=== PATIENT | female | born 1995 | race Caucasian/White ===

== ENCOUNTER 2021-12-16 05:54 | Inpatient (IN) | payer BC, SELFPAY ==
[2021-12-16] VITALS (72 sets, daily range): BP systolic 83–142; BP diastolic 45–90; PULSE 63–109; RESP 16; TEMP 36.6–36.9; O2SAT 97–100; BMI 27.8
--- OUTSIDE RECORDS SUMMARY | 2021-12-16 05:58 | XMS_ITS | Encounter Summary ---
:1995 Author Organization [facility] Address [address] [place] [address] Care Team Providers Name Role Phone Unavailable Primary Care Provider Unavailable Reason for Visit Reason Comments CONTROL, MEDICATION needs refills Encounter Details Date Type Department Care Team Description 03/27/2017 Office Visit [place] [facility] Hugo Dang for Family Practice MD Zak contraceptive [address] [address] [facility], unspecified [place], [place] type (Primary Dx) [place] [address] [place], [place] [phone] Social History Tobacco Use Types Packs/Day Years Used Date Smoking Tobacco: Never Smokeless Tobacco: Never Sex Assigned at Date Recorded Not on file documented as of this encounter Last Filed Vital Signs Vital Sign Reading Time Taken Comments Blood Pressure 127/78 03/27/2017 10:52 AM ETHICAL HACKER Pulse 76 03/27/2017 10:52 AM ETHICAL HACKER Temperature - - Respiratory Rate - - Oxygen Saturation - - Inhaled Oxygen Concentration - - Weight 60.8 kg (134 lb) 03/27/2017 10:52 AM ETHICAL HACKER Height 162.1 cm (5' 3.8) 03/27/2017 10:52 AM ETHICAL HACKER Body Mass Index 23.15 03/27/2017 10:52 AM ETHICAL HACKER documented in this encounter Patient Instructions Patient InstructionsZak Dang MD - 03/27/2017 10:50 AM CST Images from the original note were not included. 2nd form of control if on antibiotic It's been a pleasure seeing you today. Zak Dang MD 03/27/2017, 11:11 AM Combination Control Pills: Care Instructions Your Care Instructions Combination control pills are used to prevent . They give you a regular dose of the hormones estrogen and progestin. You take a hormone pill every day to prevent . control pills come in packs. The most common type has 3 weeks of hormone pills. Some packs have sugar pills (they do not contain any hormones) for the fourth week. During that fourth no-hormone week, you have your period. After the fourth week (28 days), you start a new pack. Some control pills are packaged in different ways. For example, some have hormone pills for the fourth week instead of sugar pills. Taking hormones for the entire month causes you to not have periods or to have fewer periods. Others are packaged so that you have a period every 3 months. Your doctor will tell you what type of pills you have. Follow-up care is a mejia part of your treatment and safety. Be sure to make and go to all appointments, and call your doctor if you are having problems. It's also a good idea to know your test results and keep a list of the medicines you take. How can you care for yourself at home? How do you take the pill? ?? Follow your doctor's instructions about when to start taking your pills. Use backup control, such as a condom, or don't have intercourse for 7 days after you start your pills. ?? Take your pills every day, at about the same time of day. To help yourself do this, try to take them when you do something else every day, such as brushing your teeth. What if you forget to take a pill? Always read the label for specific instructions, or call your doctor. Here are some basic guidelines: ?? If you miss 1 hormone pill, take it as soon as you remember. Ask your doctor if you may need to use a backup control method, such as a condom, or not have intercourse. ?? If you miss 2 or more hormone pills, take one as soon as you remember you forgot them. Then read the pill label or call your doctor about instructions on how to take your missed pills. Use a backup method of control or don't have intercourse for 7 days. is more likely if you miss more than 1 pill. ?? If you had intercourse, you can use emergency contraception, such as the morning-after pill (PlanB). You can use emergency contraception for up to 5 days after having had intercourse, but it works best if you take it right away. What else do you need to know? ?? The pill has side effects. ?? You may have very light or skipped periods. ?? You may have bleeding between periods (spotting). This usually decreases after 3 to 4 months. ?? You may have mood changes, less interest in sex, or weight gain. ?? The pill may reduce acne, heavy bleeding and cramping, and symptoms of premenstrual syndrome. ?? Check with your doctor before you use any other medicines, including tyzt-fre-zryalcq medicines, vitamins, herbal products, and supplements. control hormones may not work as well to prevent when combined with other medicines. ?? The pill doesn't protect against sexually transmitted infection (STIs), such as herpes or HIV/AIDS. If you're not sure whether your sex partner might have an STI, use a condom to protect against disease. When should you call for help? Call your doctor now or seek immediate medical care if: ?? You have severe belly pain. ?? You have signs of a blood clot, such as: ?? Pain in your calf, back of the knee, thigh, or groin. ?? Redness and swelling in your leg or groin. ?? You have blurred vision or other problems seeing. ?? You have a severe headache. ?? You have severe trouble breathing. Watch closely for changes in your health, and be sure to contact your doctor if: ?? You think you might be . ?? You think you may be depressed. ?? You think you may have been exposed to or have a sexually transmitted infection. Where can you learn more? 1. Go to [employer] or [employer]. 2. Enter Z218 in the search box. Current as of: June 01, 2016 Content Version: 11.3 ?? [id number] [email or web address], [employer]. CAL HACKER documented in this encounter Progress Notes Zak Dang MD - 03/27/2017 10:50 AM CST SUBJECTIVE: This is a 21-year-old female patient new patient to the clinic. She presents today for controlprescription. She says that she was previously going to the [facility] but [facility]. She says that she was on a control which was causing irregular bleeding so her previous primary care doctor switched her to Seasonale where she uses the sugar pills every 3 months. She has not had any problems with the Seasonale and would like to continue it. Requesting for refill. She already has received the flu vaccine at [facility] and did HIV testing. She is up-to-date on immunizations and she believes records from [facility] for us. No other concerns. Allergies: Penicillin bees honey Past medical history: Sinus infections strep when she was younger Past surgical history: She had her tonsils removed and adenoids shaved but she says that the adenoids are growing back Social history: Never smoker no alcohol or drug use. 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 Going to school part-time. Got recently to a [place] and planning to move in a few months but she is not sure where. Living at home with her mom and sister. Occasional coffee consumption. Occasional soda consumption. Family history: Mother's side of family is quite healthy. She does not know much about her father's side of the family OBJECTIVE: BP 127/78 Pulse 76 Ht 5' 3.8 (1.621 m) Wt 134 lb (60.8 kg) BMI 23.15 kg/m2 General: appears well, no acute distress, alert and oriented x3 LUNGS: Clear to auscultation bilaterally, no wheezes or rhonchi appreciated HEART: RRR, S1 S2 normal, no murmurs appreciated ASSESSMENT: Encounter for contraceptive management PLAN: ICD-10-CM 1. Encounter for contraceptive management, unspecified type Z30.9 levonorgest- eth estrad 91-Day (SEASONALE) 0.15-0.03 MG tablet Counseled patient about using second form of control if she is going to be on antibiotics. Seasonale prescription sent. Patient voiced understanding. This note created using speech-recognition software and may contain unintended word substitutions. Zak Dang MD 03/27/2017, 11:13 AM CAL HACKER documented in this encounter Plan of Treatment Not on filedocumented as of this encounter Visit Diagnoses Diagnosis Encounter for contraceptive management, unspecified type - Primary documented in this encounter
--- OUTSIDE RECORDS SUMMARY | 2021-12-16 05:58 | XMS_ITS | Clinical Summary ---
:1995 Author Organization [facility] [place] [address] Care Team Providers Name Role Phone Eri Johnson MD Primary Care Provider [phone] Allergies Active Allergy Reactions Severity Noted Date Comments Honey Anaphylaxis High 09/29/2013 Penicillins Rash 12/21/2009 PCN injection. Sweating Venom-Honey Bee Anaphylaxis High 11/13/2010 Medications Medication Sig Dispensed Refills Start Date End Date Status vit 28/iron Take 1 Tablet by 0 04/25/2021 Active fum/folic mouth once daily. (multivitamin folic acid 1 mg) Breast Pump Electric breast pump 1 Each 0 09/21/2021 Active PurchaseIndications: for home use. Care and examination Gestational age at of lactating mother delivery: 39 weeks. Reason for need: return to work. Length of need: 99 months (lifetime use) Active Problems Problem Noted Date COVID-19 affecting in second trimester 07/25 Overview: Diagnosed 16 weeks. Encounter for supervision of other normal , f irst trimester 05/30/2021 04/28/2021 Overview: Formatting of this note is dif ferent from the original. Component Latest Ref Rng & Units 11/24/2021 Vaginal/Rectal OB Strep B PCR Negative Estimated Date of Delivery: 12/14/21 Patient's last menstrual period was 12/2 04/2020. Last Tdap- 09/21/2021 Last Flu vaccine- 01/23/2017 Glucose (GTT) result- Component Latest Ref Rng & Units 09/21/2021 HEMOGLOBIN 12.0 - 16.0 g/dL 12.8 MCV 80 - 100 fL 90 GLUCOSE,GESTATIONAL 65 - 140 mg/dL 85 TREPONEMA PALLIDUM Negative Negative 20 week US: FINDINGS: Sonographic imaging demonstrates a singl e living intrauterine gestation. Fetus demonstrates a regular cardiac rate of 147 beats per minute. Fetus has a breech position. The placenta lies anteriorly with out evidence of placenta previa. Amnioti c fluid volume appears normal. Single deepest vertical pocket: 3.6 cm. The cervix is closed and measures 3.5 cm in length. The composite ultrasound gestational ag e is calculated at 20 weeks 1 day with a n estimated sonographic due date of 12/26/2021. The estimated weight is 346 grams which lies at the 32nd %. The following biometric measurements wer e obtained: Biparietal diameter: 4.4 cm/19 weeks 3 d ays 9th% Head circumference: 17.3 cm/19 weeks 6 d ays 13th% Abdominal circumference: 15.5 cm/20 week s 5 days 47th% Femur length: 3.2 cm/20 weeks 1 day 26th % The HC/AC ratio measures: 1.11 range (1. 09-0.26) On anatomic survey, there is a normal ap pearance of the cerebral ventricles, cavum septi pellucidi, cisterna magna and cerebellum. The nose, lips, and facial profile appear normal. The cervical, t horacic and lumbar spine are well visual ized and appear normal. There is a normal four-chamber heart view and the left and right ventricular outflow tracts appear normal. The diaphragm and stomach appear normal. The kidneys and bladder also appear normal. There is a normal three-vessel cord and cord insertion site. The four extremities appear normal. IMPRESSION: Normal OB ultrasound exam with concordan ce of clinical and sonographic dating. No intrinsic abnormalities noted on anatomic survey. Allergies Allergen Reactions ? ? Honey Anaphylaxis ? ? Venom-Honey Bee Anaphylaxis ? ? Penicillins Rash PCN injection. Sweating OB History Para Term AB Living 2 1 1 0 0 1 SAB IAB Ectopic Multiple Live Births 0 0 0 0 1 # Outcome Date GA Lbr Silver/2nd Weight Sex Delivery Anes PTL Lv 2 Current 1 Term 04/30/18 39w5d 3.06 kg (6 lb 12 o z) F VAGINAL ERWIN EPIDURAL N PIYUSH Name: Minda Man lab flowsheet for OB labs- Component Latest Ref Rng & Units 05/02/2021 022 05/02/2021 2:45 PM 2:45 PM 2:45 PM RUBELLA IGG ANTIBODY Positive 8.48 ANTIBODY SCREEN Negative Negative SPECIMEN EXPIRATION DATE/TIME 05/05/21 23:59 CHLAMYDIA PROBE N GONORRHOEAE PROBE TREPONEMA PALLIDUM Negative Negative HBSAG Nonreactive Nonreactive ABORH O Rh Positive HIV-1/HIV-2 ANTIBODY Non-Reactive Non-Reactive Component Latest Ref Rng & Units 05/02/2021 2:48 PM RUBELLA IGG ANTIBODY ANTIBODY SCREEN Negative SPECIMEN EXPIRATION DATE/TIME CHLAMYDIA PROBE Negative N GONORRHOEAE PROBE Negative TREPONEMA PALLIDUM Negative HBSAG Nonreactive ABORH HIV-1/HIV-2 ANTIBODY Non-Reactive Past Medical History: . Date ? ? ASCUS of cervix with negative high risk HPV 01/2021 ASCUS/HPV negative. Plan:Pap du e 01/2024 No past surgical history on file. No data on file. Preganacy 2 Problems (from 04/22/21 to p resent) No problems associated with this episod e. Karina Godinez RN.....04/28/2021 1:38 PM ASCUS of cervix with negative high risk HPV 01/17/2021 Overview: 01/2021 ASCUS/HPV negative. Plan:Pap due 01/2024 BRONCHITIS - ACUTE 03/31/2005 CONJUNCTIVITIS 03/31/2005 Estimated Date of Delivery Comments Yes 12/23/2021 Based on Ultrasound Resolved Problems Problem Noted Date Resolved Date Supervision of normal first , antepartum 02/11/2018 04/28/2021 Overview: Formatting of this note is dif ferent from the original. Component Latest Ref Rng & Units 04/08/2018 Culture No Group B Streptococcus isolated. Initial OB labs: CG Chlam neg O+ Neg antibody Hep B non reactive Syphilis neg Rubella Immune VZV immune Quad screen neg Pap NIL 20 week ultrasound: Anterior placenta <25% growth Normal anatomy, unable to visualiz e spine due to position Estimated Date of Delivery: 05/02/18 Patient's last menstrual period was 07/17. Last Tdap- 02/11/2018 Last Flu vaccine- declined Glucose (GTT) result- not on file Allergies Allergen Reactions ? ? Honey Anaphylaxis ? ? Venom-Honey Bee Anaphylaxis ? ? Penicillins Rash PCN injection. Sweating Obstetric History T0 L0 SAB0 TAB0 Ectopic0 Multiple0 Live s0 # Outcome Date GA Lbr Silver/2nd Weight Sex Delivery Anes PTL Lv 1 Current Create lab flowsheet for OB labs- see ab ove No past medical history on file. No past surgical history on file. No data on file. 1st Pregnacy Problems (from 02/11/18 to present) Problem Noted Resolved Supervision of normal first , antepartum 02/11/2018 by Eri Johnson MD No Overview Signed 02/11/2018 1:08 PM by Eri Figueroa MD Initial OB labs: CG Chlam neg O+ Neg antibody Hep B non reactive Syphilis neg Rubella Immune VZV immune Quad screen neg Pap NIL 20 week ultrasound: Anterior placenta <25% growth Normal anatomy, unable to visualiz e spine due to position Karina Cline, RNC.....02/12/2018 7:37 A M Encounters Date Type Specialty Care Team Description 12/13/2021 Travel 12/09/2021 OB Encounter Eri Johnson Car e MD Margaret (38wk/Contracti ons, mainly at night . Nothing consistent, naga e can be enough to stop and breath through. Mainly in her back and they don't last too long.) 12/09/2021 Ancillary Procedure 12/08/2021 Travel 12/05/2021 Travel 12/02/2021 OB Encounter Eri Johnson Car e (37 MD Margaret wk/Really bad b ack pain. If she walks a lot will have pressure.) 12/02/2021 Ancillary Procedure 12/02/2021 Telephone Eri Johnson Questions (B PP NEEDED?) MD Margaret 12/02/2021 Travel 11/28/2021 Travel 11/24/2021 OB Encounter Eri Johnson Car e (35wk MD Margaret 6d/Started gett ing heartburn, ever y time she eats.) 11/24/2021 Travel 11/18/2021 OB Encounter Eri Johnson Car e (35 weeks MD Margaret 0 days); Concer ns (baby dropping, unsur e if jorge [place]) 11/18/2021 Travel 11/17/2021 Travel 11/13/2021 Travel 11/01/2021 Travel 10/20/2021 OB Encounter Eri Johnson Car e (30w MD Margaret 6d/Low back patrick n and leg cramping./Has a bump near/in the vag inal are Lizabeth stated pro vider she check.) 10/20/2021 Ancillary Procedure 10/20/2021 Travel 10/18/2021 Travel 10/04/2021 Orders Only Lizabeth Ochoa <No scans jennifer ched> YOGESH Earl 10/03/2021 Office Visit Lizabeth Ochoa Vaginal Proble m (Vaginal YOGESH Earl itching, swell ing since Sunday ) 10/03/2021 Travel 10/01/2021 Travel 10/01/2021 Nurse Triage Eri Johnson Questions MD Margaret 09/21/2021 OB Encounter Eri Johnson Immunization /Injection; MD Margaret Care ( 26w 5d/) 09/21/2021 Orders Only Lab, [facility] 09/20/2021 Travel from Last 3 Months Immunizations Name Administration Dates Next Due DTaP 08/21/2001, 03/08/1998, 02/18/1997, 1996, 1996 HIB PRP-OMP (PedvaxHIB) 03/08/1998, 02/18/1997, 1996, 1996 Hepatitis B (Peds) 02/18/1997, 1996, 1996 Inactivated Polio Vaccine 08/21/2001, 11/25/1997, 1996 , 1996 Influenza, IIV3 (Age >=3 years) 01/24/2006, 03/06/2005 Influenza, IIV4 01/23/2017, 12/08/2008 MMR 08/21/2001, 11/25/1997 Meningococcal Vaccine (Menactra) 10/02/2008 Tdap 09/21/2021, 02/11/2018, 10/02/2008 Tuberculin Skin Test, Unspecified 11/15/2016, 11/06/2016 Varicella Vaccine 10/02/2008, 03/08/1998 Family History Medical History Relation Name Comments Congenital heart disease Half-Brother Genetic Other Family history o f:cervucsl ca- mothetr~~Breast Cancer: No~~Ovarian Cancer: No~~Orogrande n CA: No~~Prostate/Teresa ticular CA: No~~Osteoporosis : No~~Early CAD: No~~DM: No~~Thyroid Dz: No Relation Name Status Comments Father Half-Brother Other Social History Tobacco Use Types Packs/Day Years Used Date Never Smoker Smokeless Tobacco: Never Used Tobacco Cessation: Counseling Given: Yes Alcohol Use Standard Drinks/Week Comments No 0 (1 standard drink = 0.6 oz pure alcoho l) Estimated Date of Delivery Comments Yes 12/23/2021 Based on Ultrasound Sex Assigned at Date Recorded Not on file COVID-19 Exposure Response Date Recorded In the last 10 days, have you been in contact with No / Unsu re 12/13/2021 9:01 AM CDT someone who was confirmed or suspected to have Coronavirus/COVID-19? Obstetrics History Para Term AB IAB SAB Ectopic Multiple Living Live Births 2 1 1 1 1 Date Outcome GA Total Labor/2nd/3rd Weight Sex Delivery Anes PTL Piyush A 1 A5 Name Clin Labor 04/30 Term 39w 10h 3.06 kg F VAGINAL Epidu N [facility] Tappe /2018 5d 00m (6 lb ERWIN ral ng ey r 12 oz) Complications: None Delivery Location: [facility] Current OB Episode Summary Episode Dates Estimated Date of Pregravid Weight TWG (As of ) Delivery 04/22/2021 - Present 12/23/2021 (12/16/2021) Progress Notes 12/09/2021 - 38w0d - Eri Johnson MD SUBJECTIVE: Arablela Reese is a 26 y.o. female at 38 weeks. Had itching earlier in the week on hands and feet, but now has resolved. She is having sporatic contractions, naga e siginficant enough to breathe through. Feels them in her back. No concerns. See visit comments. OBJECTIVE: see OB vitals flow sheet Cervix soft, 4 cm external os, but unabl e to reach internal os due to posterior position with low station. BPP 10/24 ASSESSMENT : 38 weeks gestation with no complications PLAN: Labor signs and symptoms reviewed with p atient including painful regular contractions or leaking fluid. Plan for induction in 1 week for history of COVID in and EFW 10%. Eri Johnson MD .............. ...... 12/09/2021 12:03 PM 12/02/2021 - 37w0d - Eri Johnson MD SUBJECTIVE: Arabella Reese is a 26 y.o. female at 37 weeks. She is getting contractions in the eveni ng, last night was feeling in the back. No concerns. See visit comments. OBJECTIVE: see OB vitals flow sheet NST category 1 baseline 140 bpm moderate variability with accelerations to 155 bpm. No decels. . ASSESSMENT : 37 weeks gestation with history of covid in . Growth US shows 10% PLAN: labor signs and symptoms reviewe d with patient including pain, cramping, bleeding or leaking fluid. RTC 1 weeks with BPP. Eri Johnson MD .............. ...... 12/02/2021 10:43 AM 11/24/2021 - 35w6d - Eri Johnson MD SUBJECTIVE: Arabella Reese is a 26 y.o. female at 35+6 weeks. Having heartburn, hasn't tried anything yet. No concerns. See visit comments. OBJECTIVE: see OB vitals flow sheet ASSESSMENT : 35+6 weeks gestation with hx covid in pr egnancy. PLAN: labor signs and symptoms reviewe d with patient including pain, cramping, bleeding or leaking fluid. Growth ultrasound next week, weekly NST and will plan for induction after 39 weeks. Recommend OTC tums or pepcid for heartbu rn. GBS done today RTC 1 weeks. Eri Johnson MD .............. ...... 11/24/2021 10:43 AM 11/18/2021 - 35w0d - Eri Johnson MD SUBJECTIVE: Arabella Reese is a 26 y.o. female at 35 weeks. Having some BH contractions. No concerns. See visit comments. OBJECTIVE: see OB vitals flow sheet ASSESSMENT : 35 weeks gestation with no complications Covid in prengnacy PLAN: labor signs and symptoms reviewe d with patient including pain, cramping, bleeding or leaking fluid. RTC 1 weeks, has growth ultrasound in 2 weeks. Eri Johnson MD .............. ...... 11/18/2021 3:15 PM 10/20/2021 - 30w6d - Eri Johnson MD SUBJECTIVE: Arabella Reese is a 26 y.o. female at 30+6 weeks. Yeast symptoms gone. Also a mucosal cyst found at that visit on 10/03, she has no symptoms and as far as she is aware, it has not changed. Is having low back pain, feels the spine locking. See visit comments. OBJECTIVE: see OB vitals flow sheet Vaginal lesion appears ot be scar tissue from prior perineal lac repair. ASSESSMENT : 30+6 weeks gestation with no complicatio ns other than covi in PLAN: labor signs and symptoms reviewe d with patient including pain, cramping, bleeding or leaking fluid. RTC 2 weeks. Growth ultrasound at 36 weeks. Eri Johnson MD .............. ...... 10/20/2021 10:42 AM 09/21/2021 - w5d - Eri Johnson MD SUBJECTIVE: Arabella Reese is a 26 y.o. female at 26+5 weeks. No concerns. See visit comments. OBJECTIVE: see OB vitals flow sheet ASSESSMENT : 26+5 weeks gestation with no complicatio ns Covid in PLAN: labor signs and symptoms reviewe d with patient including pain, cramping, bleeding or leaking fluid. RTC 4 weeks with growth ultrasound for h istory of covid in . Eri Johnson MD .............. ...... 09/21/2021 9:58 AM 08/22/2021 - w3d - Eri Johnson MD SUBJECTIVE: Arabella Reese is a 26 y.o. female at 22+3 weeks. Having swelling when she wakes in the AM in the feet and ankles. Gets better as she moves around. NO headache, vision changes, upper abdominal pain. No other concerns. See visit comments. OBJECTIVE: see OB vitals flow sheet ASSESSMENT : 22+3 weeks gestation with covid in 2nd t rimester PLAN: labor signs and symptoms reviewe d with patient including pain, cramping, bleeding or leaking fluid. RTC 4 weeks with diabetes, hemoglobin an d syphilis screening as well as TDaP. Eri Johnson MD .............. ...... 08/22/2021 9:59 AM 07/25/2021 - 18w3d - Eri Johnson MD SUBJECTIVE: Arabella Reese is a 25 y.o. female at 18+3 weeks. She had covid since our last visit. She is now completely recovered No concerns. See visit comments. OBJECTIVE: see OB vitals flow sheet ASSESSMENT : 18+3 weeks gestation with no complicatio ns PLAN: Warning signs and symptoms reviewed with patient including pain, cramping, bleeding or leaking fluid. ultrasound in 2 weeks, already scheduled . RTC 4 weeks. Eri Johnson MD .............. ...... 07/25/2021 10:21 AM 06/27/2021 - w3d - Eri Johnson MD SUBJECTIVE: Arabella Reese is a 25 y.o. female at 14+3 weeks. Was getting sick/faint with PNV, but fee ling better since stopping. Is eating well except has an aversion to meat. No concerns. See visit comments. OBJECTIVE: see OB vitals flow sheet ASSESSMENT : 14+3 weeks gestation with no complicatio ns PLAN: Warning signs and symptoms reviewed with patient including pain, cramping, bleeding or leaking fluid. Discussed dietary strategies to get adeq uate folic acid, calcium, iron. Will try pnv again once feeling better. RTC 4 weeks. ultrasound ordered for 20 w eeks. Eri Johnson MD .............. ...... 06/27/2021 12:21 PM 05/30/2021 - w3d - Eri Johnson MD FIRST OB VISIT HPI: Arabella Reese is a 25 y.o. fe male at 10w3d with srinivasan intrauterine here today for a initial OB exam. Estimated due date is Estimated Date of Delivery: 12/23/21 based on first trimester ultrasound dating. Nausea/Vomiting: yes, but vomiting impro sujata the last week. Feels very shaky Breast tenderness: yes Fatigue: yes Bleeding: yes, but resolved Taking vitamins: yes Options of sequential screen, cell-free DNA testing, amniocentesis were discussed. Patient is interested in pursuing testing. AMA: no Previous : no OB History Para Term AB Living 2 1 1 1 SAB IAB Ectopic Multiple Live Births 1 # Outcome Date GA Lbr Silver/2nd Weight Sex Delivery Anes PTL Lv 2 Current 1 Term 04/30/18 39w5d 3.06 kg (6 lb 12 o z) F VAGINAL ERWIN EPIDURAL N PIYUSH Past Medical History: . Date ? ? ASCUS of cervix with negative high risk HPV 01/2021 ASCUS/HPV negative. Plan:Pap du e 01/2024 No past surgical history on file. Family History Problem Relation Age of Onset ? ? Genetic Other Family history of:cervucsl ca- mothetr~ ~Breast Cancer: No~~Ovarian Cancer: No~~Colon CA: No~~Prostate/Testicular CA: No~~Osteoporosis: No~~Early CAD: No~~DM: No~~Thyroid Dz: No ? ? Congenital heart disease Half-Brother Social History Tobacco Use ? ? Smoking status: Never Smoker ? ? Smokeless tobacco: Never Used Substance Use Topics ? ? Alcohol use: No Current Outpatient Medications Medication Sig ? ? vit 28/iron fum/folic (multivitamin folic acid 1 mg) Take 1 Tablet by mouth once daily. No current facility-administered medicat ions for this visit. Medications have been reviewed by me and are current to the best of my knowledge and ability. ALLERGIES Honey, Venom-honey bee, and Penicillins MENTAL HEALTH HISTORY History of psychiatric diagnosis: None Current mental health provider: not appl icable Currently taking any psychiatric medicat ions? Not Applicable INFECTION HISTORY Current Drug Use: none Relevant infection history from [facility] ionnaire: none REVIEW OF SYSTEMS Comprehensive ROS complete and negative other than noted in HPI and on OB Questionnaire. PHYSICAL EXAM BP 131/83 (Cuff Site: Left Arm, Position : Sitting, Cuff Size: Child) Pulse 91 Ht 1.613 m (5' 3.5) Wt 63.5 kg (140 lb) LMP 03/09/2021 SpO2 99% BMI 24.41 kg/m?? General Appearance: Alert, appropriate a ppearance for age. No acute distress. HEENT Exam: Grossly normal. Neck/Thyroid Exam: Supple, no masses, no abbie or enlargement. Lungs: Clear to auscultation bilaterally . Breast Exam: Not indicated. Cardiovascular Exam: Regular rate and rh ythm. S1, S2, no murmur. Abd: Soft, non-tender, no masses or orga nomegaly. Skin: no rashes or lesions. Lymphatics: no nodes palpable. Psychiatric Exam: Alert and oriented x 3 , appropriate affect. Pelvic Exam: deferred/not indicated ASSESSMENT/PLAN 25 y.o. at 10w3d with srinivasan intrauterine . ICD-10-CM 1. Encounter for supervision of other no rmal , first trimester Z34.81 DNA SCREEN SEND OUT DNA SCREEN SEND OUT NV COLLECTION VENOUS BLOOD VENIPUNCTURE 2. Family history of Down syndrome Z82.7 9 Satisfactory exam. Demonstrates appropriate and health-seeking behaviors toward her . Verbalizes good understanding of care schedule and the importance of coming to each visit as scheduled. Start/continue v itamins. Reviewed labs. She was encouraged to call the office with any questions or concerns. Body mass index is 24.41 kg/m??. Diet and expected weight gain discussed with patient. DEPRESSION SCREEN PHQ Depression Screening 01/17/2021 Date of PHQ exam (doc flow) 01/17/2021 1. Lack of interest/pleasure 0 - Not at all 2. Feeling down/depressed 0 - Not at all PHQ-2 TOTAL SCORE 0 Some recent data might be hidden Intervention: Not Depressed Eri Johnson MD 05/02/2021 - 6w3d - Eri Johnson MD SUBJECTIVE: Arabella Reese is a 25 y.o. female here today for light brown spotting and 4/10 cramping starting today. She is really nauseated, not vomiting. H aving difficulty eating until 2 pm. Has sopped her prenatals because of fatigue and nausea. She has tried an OTC nausea medication with B6 and lavinia. Past Medical History: . Date ? ? ASCUS of cervix with negative high risk HPV 01/2021 ASCUS/HPV negative. Plan:Pap du e 01/2024 Current Medications: Current Outpatient Medications Medication Sig ? ? vit 28/iron fum/folic (multivitamin folic acid 1 mg) Take 1 Tablet by mouth once daily. No current facility-administered medicat ions for this visit. Medications have been reviewed by me and are current to the best of my knowledge and ability. Allergies Allergen Reactions ? ? Honey Anaphylaxis ? ? Venom-Honey Bee Anaphylaxis ? ? Penicillins Rash PCN injection. Sweating OBJECTIVE: BP 131/87 (Cuff Site: Left Arm, Position : Sitting, Cuff Size: Adult Regular) Pulse 83 Ht 1.619 m (5' 3.75) Wt 63.7 kg (140 lb 6.4 oz) LMP 03/09/2021 SpO2 100% BMI 24.29 kg/m?? EXAM: General Appearance: Pleasant, alert, leroy ropriate appearance for age. No acute distress ultrasound shows a 6w3d IUP with small s ubchorionic hemorrhage. ASSESSMENT/PLAN: ICD-10-CM 1. Spotting in early O26.859 2. care in first trimester Z34. 91 CBC AND DIFFERENTIAL URINE RUBELLA IMMUNE STATUS TREPONEMA PALLIDUM HBSAG (HBS) ANTIBODY SCREEN ABORH TYPE ANTI HIV 1/2 UA W/ SEDIMENT EXAM REFLEXED PER CRITER IA URINE CULTURE GC & CHLAMYDIA DNA PCR [[id number]] Reassurance given regarding spotting and cramping especially given normal ultrasound. Warning signs and symptoms reviewed, including bright red bleeding, heavy bleeding or severe abdominal pain which sh ould prompt reevaluation. Report non-res olution or worsening. The plan of care was agreed to. Discussed trying vitamins later in the evening to see if that helps with nausea and fatigue. If no improvement in nausea, patient can reach out to request prescription for zofran. Initial labs done today. Follow up in 4 weeks for initial oB visit. Eri Johnson MD .............. ...... 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 The patient and I mutually agree joss t this visit is appropriate for telephon e as well. Patient location (originating site city/ state): [address] [place] [id number] Provider location (distant site city/sta ): [facility] Video/Phone start time (include am/pm de signation): 7:35AM Video/Phone end time (include am/pm jorge gnation): 7:54 AM EXAM - OB Arabella Reese is a 25 y.o. female, G 2, P 1, here today for a exam. : 1995 Race/Ethnicity: /White Marital Status: Occupation: [employer] Hospital of Delivery: [place] Provider: provider Javed delacruz appjess /Father of baby: Jorge MENSTRUAL HISTORY LMP: Patient's last menstrual period was 03/09/2021. Cycle Regularity: regular, every 28-30 d ays Flow: normal SYLVIA by LMP Calculator: 12/14/2021 Date Reliability: definite On BCP's at conception: no, but had stop ped in mid-February MEDICAL HISTORY OB History Para Term AB Living 2 1 1 1 SAB IAB Ectopic Multiple Live Births 1 # Outcome Date GA Lbr Silver/2nd Weight Sex Delivery Anes PTL Lv 2 Current 1 Term 04/30/18 39w5d 3.06 kg (6 lb 12 o z) F VAGINAL ERWIN EPIDURAL N PIYUSH Past Medical History: . Date ? ? ASCUS of cervix with negative high risk HPV 01/2021 ASCUS/HPV negative. Plan:Pap du e 01/2024 No past surgical history on file. Family History: Family History Problem Relation Age of Onset ? ? Genetic Other Family history of:cervucsl ca- mothetr~ ~Breast Cancer: No~~Ovarian Cancer: No~~Colon CA: No~~Prostate/Testicular CA: No~~Osteoporosis: No~~Early CAD: No~~DM: No~~Thyroid Dz: No ? ? Congenital heart disease Half-Brother Social History: Social History Tobacco Use ? ? Smoking status: Never Smoker ? ? Smokeless tobacco: Never Used Substance Use Topics ? ? 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 Lynco awful after shot #2, is due for her booster soon, but is unsure about getting it. REVIEW OF SYSTEMS Review of Systems Negative. PHYSICAL EXAM LMP 02/14/2021 (Exact Date) General Appearance: Alert, appropriate a ppearance for age. No acute distress Psychiatric Exam: Alert and oriented, ap propriate affect. ASSESSMENT Satisfactory exam. Demonstrates appropriate and health seeking behaviors toward her . Verbalizes good understanding of care schedule and the importance of coming to each visit as scheduled. Has supportive family rel ationship. PLAN Reviewed health maintenance issues inclu ding diet, exercise, caffeine intake, handling of cat litter, toxic substances, daily vitamins, child classes, choosing a micro photographer, and regular exams. She was encouraged to call the o ice with any questions or concerns. Eri Johnson MD .............. ...... 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 Respiratory Rate - - Oxygen Saturation 99% 12/09/2021 11:47 AM CDT Inhaled Oxygen Concentration - - Weight 72.8 kg (160 lb 9.6 oz) 12/09/2021 11:47 AM CDT Height 161.3 cm (5' 3.5) 05/30/2021 1:03 PM CDT Body Mass Index 28 05/30/2021 1:03 PM CDT Plan of Treatment Upcoming Encounters Date Type Specialty Care Team Description 12/16/2021 OB Encounter Eri Johnson MD [address] [phone] (Wo rk) 12/23/2021 OB Encounter Eri Johnson MD [address] [phone] (Wo rk) Health Maintenance Due Date Last Done Comments HPV series for age 9-26 (1 - 07/28/2007 2-dose series) Hepatitis C screening for age 0507/27/2014 18-79 COVID-19 vaccine series (3 - 04/13/2021 11/11/2020, 021 Booster for Pfizer series) Influenza for age 9-49 11/17/2021 01/23/2017, 12/08/2008, 01/24/2006, Additional history exists Depression screening for age 12+ 01/17/2022 01/17/2021, 03/2018, 02/11/2018, Additional history exists BMI (ht and wt on same day) for 05/30/2022 05/30/2021, 04/19, age 18+ 02/16/2021, Additional history exists Pap test for age 21-65 01/18/2024 01/17/2021, 01/17/2021 Tetanus booster 09/22/2031 09/21/2021, 02/11/2018, 10/02/2008 Tdap Completed 09/21/2021, 02/11/2018, 10/02/2008 Procedures Procedure Name Priority Date/Time Associated Diagnosis Comme nts HEPATIC FUNCTION Routine 12/09/2021 12:34 Pruritus Results for this PANEL PM CDT procedure are i n the results section. BILE ACIDS Routine 12/09/2021 12:34 Pruritus Results for this PM CDT procedure are i n the results section. US OB BIOPHYSICAL Routine 12/09/2021 11:45 COVID-19 affecting Results for this PROFILE SINGLE WO AM CDT in third proc edure are in NST trimester the results section. US OB FOLLOW UP ANY Routine 12/02/2021 10:25 Encounter for Res ults for this TRI SINGLE TA AM CDT supervision of other proced ure are in normal , the result s third trimester section. COVID-19 affecting in second trimester VAGINAL/RECTAL OB Routine 11/24/2021 10:45 Encounter for Resul ts for this STREP PCR AM CDT supervision of other procedu re are in normal , the result s third trimester section. US OB FOLLOW UP ANY Routine 10/20/2021 10:05 Encounter for Res ults for this TRI SINGLE TA AM CDT supervision of other proced ure are in normal , the result s second trimester section. COVID-19 affecting in second trimester TRICHOMONAS, Routine 10/03/2021 3:24 PM Vaginal irritation Res ults for this RAÚL, AND CDT procedure are i n BACTERIAL VAGINOSIS the resu lts BY RAKESH section. TREPONEMA PALLIDUM Routine 09/21/2021 10:30 Encounter for Resu lts for this AM CDT supervision of other procedu re are in normal , the result s second trimester section. HEMOGLOBIN Routine 09/21/2021 10:30 Encounter for Results fo r this AM CDT supervision of other procedu re are in normal , the result s second trimester section. GLUCOSE,GESTATIONAL Routine 09/21/2021 10:30 Encounter for Res ults for this AM CDT supervision of other procedu re are in normal , the result s second trimester section. from Last 3 Months Results BILE ACIDS (12/09/2021 12:34 PM CDT) P athologist Signature Bile Acids 3.7 0.0 - 10.0 12/13/2021 [facility] umol/L 12:07 PM CDT [facility] ([facility]) Specimen Anatomical Collection Method / Collection Time Recei sujata Time (Source) Location / Volume Laterality Blood BLOOD SPECIMEN / Venipuncture / 12/09/2021 12:34 12/09 Unknown Unknown PM CDT 12:37 PM CDT Narrative [facility] (CET) - 12/13/2021 12:07 PM CDT Performed at: ??01 - [facility] [address] [place], [place] ??[address] Reconciling Clerk: Marilia Falk MD, Phone: ??[phone] Eri Johnson MD SEND OUTS Performing Organization Address City/State/ZIP Code Phon e Number [facility] [address] [place], [place] [address] ESOTERIC TESTING (CET) (ABNORMAL) HEPATIC FUNCTION PANEL (12/09/2021 12:34 PM CDT) [facility] Method Time Signature ALBUMIN 3.7 3.5 - 5.2 12/10/2021 [facility] g/dL 4:21 PM CDT LABORATORY-[facility] TRAL LABORATORY PROTEIN,TOTAL 6.5 6.0 - 8.0 12/10/2021 [facility] g/dL 4:21 PM CDT [facility] GLOBULIN 2.8 2.0 - 3.7 12/10/2021 [facility] g/dL 4:21 PM CDT [facility] A/G RATIO 1.3 1.0 - 2.0 12/10/2021 [facility] 4:21 PM CDT [facility] BILIRUBIN,TOTAL 0.5 0.2 - 1.2 12/10/2021 [facility] mg/dL 4:21 PM CDT [facility] BILIRUBIN,DIRECT 0.2 0.1 - 0.5 12/10/2021 [facility] mg/dL 4:21 PM CDT LAB[facility]AT[facility] BILIRUBIN,INDIRE 0.3 0.2 - 0.8 12/10/[address] [facility] [address] mg/dL 4:21 PM CDT [facility]AT[facility] ALK PHOSPHATASE 182 (H) 50 - 136 12/10/2021 [facility] IU/L 4:21 PM CDT [facility] ALT (SGPT) 9 8 - 45 12/10/2021 [facility] IU/L 4:21 PM CDT [facility]AT[facility] AST (SGOT) 23 2 - 40 12/10/2021 [facility] IU/L 4:21 PM CDT LABORATORY-[facility] LABORATORY Specimen Anatomical Collection Method / Collection Time Recei sujata Time (Source) Location / Volume Laterality Blood BLOOD SPECIMEN / Venipuncture / 12/09/2021 12:34 12/09 Unknown Unknown PM CDT 12:37 PM CDT Eri Johnson MD CHEMISTRY Performing Organization Address City/State/ZIP Code Phon e Number [facility] [address] [place] [address] LABORATORY-CENTRAL 2000 LABORATORY US OB BIOPHYSICAL PROFILE SINGLE WO NST (12/09/2021 11:45 AM CDT) Anatomical Region Laterality Modality Ultrasound Specimen (Source) Anatomical Collection Method Collection Time Re ceived Time Location / / Volume Laterality 12/09/2021 12:08 PM CDT Impressions 12/09/2021 12:08 PM CDT Normal biophysical profile score of 8 out of 8. Dictated by Ricardo Velasquez MD @ Dec 09 022 12:08PM (Electronically Signed) ?? Narrative 12/09/2021 12:08 PM CDT For Patients: ??As a result of the Cures Act, medical imaging exams and procedure report s are released immediately into your [facility]. ??You may view this report before your referring provider. ??If you have questions, please contact your health care provider. INDICATION: COVID-19 affecting in third tr imester COMPARISON: 12/02/2021 TECHNIQUE: Real time seha scale imaging of the fetu s was performed as well as color Doppler and spectral Doppler analysis of the umbilical artery. Without non-stress testing. FINDINGS: Sonographic imaging demonstrates a singl e living intrauterine gestation. ??Fetus demonstrates a regular cardiac rate of 143 beats per minute. ??Fetus has a vertex orientation with spine to the mat ernal left. The umbilical artery demonst rates adequate diastolic blood flow. ??The S/D ratio measures 2.6. The amniotic fluid volume appears normal and there is a single deepest pocket measurement of 3. 3 cm. ??The fetus was active and demonst rated normal breathing movements. There was normal flexion and extension of the trunk and extremities. ?? Procedure Note Ricardo Velasquez MD - 12/09/2021For matting of this note might be different from the original. For Patients: As a result of the Cures Act, medical imaging exams and procedure reports are released immediately into your electronic medical record. You may view this report before your referring provider. If you have questions, please contact yo health care provider. INDICATION: COVID-19 affecting in third tr imester COMPARISON: 12/02/2021 TECHNIQUE: Real time shea scale imaging of the fetu s was performed as well as color Doppler and spectral Doppler analysis of the umbilical artery. Without non-stress testing. FINDINGS: Sonographic imaging demonstrates a singl e living intrauterine gestation. Fetus demonstrates a regular cardiac rate of 143 beats per minute. Fetus has a vertex orientation with spine to the maternal left. The umbilical artery demonstrates adequate d iastolic blood flow. The S/D ratio measures 2.6. The amniotic fluid volume appears normal and there is a single deepest pocket measurement of 3.3 cm. The fetus was active and demonstrated normal breathing movements. There was normal flexion and extension of the trunk and extremities. IMPRESSION: Normal biophysical profile score of 8 ou t of 8. Dictated by Ricardo Velasquez MD @ Dec 09 2 12:08PM (Electronically Signed) Eri Johnson MD US OB FOLLOW UP ANY TRI SINGLE TA (12/02/2021 10:25 AM CDT)Only the most recent of2 resultswithin the time period is included. Anatomical Region Laterality Modality , 2or 3 TRIMESTER Ult rasound Specimen (Source) Anatomical Collection Method Collection Time Re ceived Time Location / / Volume Laterality 12/02/2021 1:56 PM CDT Impressions 12/02/2021 1:56 PM CDT Sonographic gestational age 35 weeks 2 days and sonographic due date 01/04/2022. Sonographic age 12 days behind the clinical age. Estimated weight 10th percentile. Head circumference less than 2nd percentile. Dictated by Ricardo Velasquez MD @ Dec 02 2 022 ??1:56PM (Electronically Signed) ?? Narrative 12/02/2021 1:56 PM CDT For Patients: ??As a result of the Cures Act, medical imaging exams and procedure report s are released immediately into your [facility] medical record. ??You may view this report before your referring provider. ??If you have questions, please contact your health care provider. INDICATION: Third trimester scan, evaluate growth. C OVID in . COMPARISON: 10/20/2021 TECHNIQUE: Real time shea scale imaging of the fetu s was performed as well as color Doppler and spectral Doppler analysis of the umbilical artery. FINDINGS: Sonographic imaging demonstrates a singl e living intrauterine gestation. ??Fetus demonstrates a regular cardiac rate of 142 beats per minute. ??Fetus has a vertex position. The placenta lies anteriorly without evidence of placenta previa. ??A mniotic fluid volume appears normal and there is a single deepest vertical pocket: 3.6 cm. The estimated weight is 2530gm which lies at the 10th %. ??On the prior OB ultrasound exam dated 10/21/19 22 the estimated weight was at the 23rd%. BPD 53rd percentile. HC less than 2nd percentile. AC 5th percentile. FL 9th percentile. The HC/AC ratio measures 1 .02 range (0.92-1.05). There is adequate diastolic blood flow within the umbilical artery. ??The S/D ratio measures 3.1. Procedure Note Ricardo Velasquez MD - 12/02/2021For matting of this note might be different from the original. For Patients: As a result of the ntury Cures Act, medical imaging exams and procedure reports are released immediately into your electronic medical record. You may view this report before your referring provider. If you have questions, please contact yo health care provider. INDICATION: Third trimester scan, evaluate growth. C OVID in . COMPARISON: 10/20/2021 TECHNIQUE: Real time shea scale imaging of the fetu s was performed as well as color Doppler and spectral Doppler analysis of the umbilical artery. FINDINGS: Sonographic imaging demonstrates a singl e living intrauterine gestation. Fetus demonstrates a regular cardiac rate of 142 beats per minute. Fetus has a vertex position. The placenta lies anteriorly without evidence of placenta previa. Amniotic fluid volume a ppears normal and there is a single deepest vertical pocket: 3.6 cm. The estimated weight is 2530gm which lies at the 10th %. On the prior OB ultrasound exam dated 10/20/2021 the estimated weight wa s at the 23rd%. BPD 53rd percentile. HC less than 2nd percentile. AC 5th percentile. FL 9th percentile. The HC/AC ratio measures 1.02 range (0.92-1.05). There is adequate diastolic blood flow within the umbilical artery. The S/D ratio measures 3.1. IMPRESSION: Sonographic gestational age 35 weeks 2 d ays and sonographic due date 01/04/2022. Sonographic age 12 days behind the clinical age. Estimated weight 10th percentile. Head circumference less than 2nd percentile. Dictated by Ricardo Velasquez MD @ Nov 16 2 022 1:56PM (Electronically Signed) Eri Johnson MD VAGINAL/RECTAL OB STREP PCR (11/24/2021 10:45 AM CDT) Analysis Performed At Path logist Time Signature Vaginal/Rectal Negative 11/26/2021 [facility] OB Strep B PCR 11:49 AM CDT LABORATORY-C EN TRAL LABORATORY Specimen Anatomical Collection Method Collection Time Receive d Time (Source) Location / / Volume Laterality Other Non-Blood / 11/24/2021 10:45 11/24/2021 (Vaginal/Rectal) Unknown AM CDT 11:18 AM CD T Eri Johnson MD MICROBIOLOGY Performing Organization Address City/State/ZIP Code Phon e Number [facility] [address] [place] [address] LABORATORY-CENTRAL 2000 LABORATORY (ABNORMAL) TRICHOMONAS, RAÚL, AND BACTERIAL VAGINOSIS BY RAKESH (10/03/2021 3:24 PM CDT) Patholo gist Method Time Signature RAÚL SPECIES Positive (A) Negative 10/04/2021 [facility] 11:35 AM LABORATORY-CE CDT NTRAL LABORATORY RAÚL Negative Negative 10/04/2021 [facility] GLABRATA 11:35 AM LABORATORY-CE CDT NTRAL LABORATORY TRICHOMONAS VVA Negative Negative 10/04/2021 [facility] 11:35 AM LABORATORY-CE CDT NTRAL LABORATORY BACTERIAL Negative Negative 10/04/2021 [facility] VAGINOSIS 11:35 AM LABORATORY-CE CDT NTRAL LABORATORY Specimen Anatomical Collection Method Collection Time Receive d Time (Source) Location / / Volume Laterality Other VAGINAL SWAB / Non-Blood / 10/03/2021 3:24 PM 022 3:33 Unknown Unknown CDT PM CDT Lizabeth ZUÑIGA MICROBIOLOGY Performing Organization Address City/State/ZIP Code Phon e Number [facility] [address] [place] [address] LABORATORY-CENTRAL 2000 LABORATORY TREPONEMA PALLIDUM (09/21/2021 10:30 AM CDT) Analysis Performed At Patho logist Time Signature TREPONEMA Negative Negative 09/22/2021 [facility] PALLIDUM 8:53 AM CDT LABORATORY-LINH TRAL LABORATORY Specimen Anatomical Collection Method / Collection Time Recei sujata Time (Source) Location / Volume Laterality Blood BLOOD SPECIMEN / Venipuncture / 09/21/2021 10:30 09/21 Unknown Unknown AM CDT 10:32 AM CDT Eri Johnson MD SEND OUTS Performing Organization Address City/State/ZIP Code Phon e Number [facility] [address] [place] [address] LABORATORY-CENTRAL 2000 LABORATORY HEMOGLOBIN (09/21/2021 10:30 AM CDT) athologist Signature HEMOGLOBIN 12.8 12.0 - 16.0 09/21/2021 [facility] g/dL 10:36 AM CDT [facility] MCV 90 80 - 100 fL 09/21/2021 [facility] 10:36 AM CDT [facility] Specimen Anatomical Collection Method / Collection Time Recei sujata Time (Source) Location / Volume Laterality Blood BLOOD SPECIMEN / Venipuncture / 09/21/2021 10:30 09/21 Unknown Unknown AM CDT 10:32 AM CDT Eri Johnson MD HEMATOLOGY Performing Organization Address City/State/ZIP Code Phon e Number [facility] [address] [place] [address] GLUCOSE,GESTATIONAL (09/21/2021 10:30 AM CDT) P athologist Signature GLUCOSE,GESTAT 85 65 - 140 09/21/2021 [facility] IONAL mg/dL 10:40 AM CDT [facility] Specimen Anatomical Collection Method / Collection Time Recei sujata Time (Source) Location / Volume Laterality Blood BLOOD SPECIMEN / Venipuncture / 09/21/2021 10:30 09/21 Unknown Unknown AM CDT 10:32 AM CDT Eri Johnson MD CHEMISTRY Performing Organization Address City/State/ZIP Code Phon e Number [facility] [address] [place] [address] from Last 3 Months Insurance Payer Benefit Plan / Subscriber ID Effective Dates Phone Addre ss Type Group [employer] [id number] 2006-Present [address] [address] [place] [address] [employer] [id number] 2020-Present [address] [place] [address] Care Teams 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
[2021-12-16 06:56] LABS: Basophils Percent Auto 0.3 % (0.0-3.0); Eosinophils Percent Auto 0.2 % (0.0-7.0); Hemoglobin* 12.3 gm/dL (12.0-16.0); Immature Granulocytes Abs Auto 0.13 K/uL (0.00-0.30); Lymphocytes Percent Auto 14.2 % (20-44); Mean Corpuscular HGB Conc 34 gm/dL (32-36); Mean Corpuscular Hemoglobin 30 pg (26-34); Mean Corpuscular Volume 87 fL (80-100); Monocytes Percent Auto 4.9 % (0.0-11.0); Neutrophils Percent Auto 79.4 % (42.0-72.0); Platelet Count* 259 K/uL (140-440); RDW Coefficient of Variation % 12.5 % (11.5-15.5); Red Blood Count 4.16 m/uL (4.00-5.20)
[2021-12-16 07:01] LABS: Slide Review Reflex No
[2021-12-16 07:29] LABS: SARS PCR* Negative SARS-CoV-2 (Negative)
--- NOTE | 2021-12-16 07:40 | PM.OBHPLI ---
OB - H&P: HPI Labor/Induction History of Present Illness Date Seen: 12/16/21 Chief Complaint: The patient is a 26 year old 2 para 1 at 39 weeks gestation by first trimester US, who presents with IOL for covid in and borderline IUGR with last EFW at 10%. Chief complaint: Induction for SGA and covid in : 2 Para: 1 Indications for induction: other (Covid infection in , IUGR) Narrative: Arabella Reese is a 26 year old female History of Present Dating criteria: based on 1st trimester US only care: good care Ultrasounds: normal mid trimester US Abnormal ultrasound findings: 37 week US at 10% growth Medical complications: none Labs Blood type: O (+) positive Rubella: immune RPR/VDLR: nonreactive GBS status: negative HBsAG: negative Meds Home Medications and Allergies Home Medications Medication Instructions Recorded Confirmed Type docosahexaenoic acid PO 12/16/21 History Allergies Allergy/AdvReac Type Severity Reaction Status Date / Time honey Allergy Swelling Verified 12/16/21 06:18 of Lip/Tongue/Throat bees Allergy Severe Anaphylaxis Uncoded 12/16/21 06:18 pencillin Allergy Severe Anaphylaxis Uncoded 12/16/21 06:18 OB - H&P: Exam Physical Exam: Vital signs: Temp Pulse Resp BP Pulse Ox 98.1 F 90 16 123/86 99 12/16/21 06:32 12/16/21 06:29 12/16/21 06:32 12/16/21 06:32 12/16/21 06:32 Constitutional: Constitutional: no acute distress Routine HEENT Exam: Head: Present atraumatic Eye: Present EOMI ENT: Present mucous membranes moist Routine Neck Exam: Neck: Present full ROM Routine Respiratory Exam: Respiratory: Present CTA bilaterally Routine Cardiovascular Exam: Cardiovascular: RRR Comments: no murmur Detailed Labor and Delivery Exam: Dilation (cm): 3 Effacement (%): 60 Cervix position: mid Consistency: soft Fetus (Single): Station: -2 Amniotic Membrane Status: AROM Amniotic Membrane Fluid Description: Clear Heart Rate Baseline: 140 Monitor Accelerations: Present Monitor Decelerations: None Correction Variability: Moderate (11-25) Routine Back/Spine/Pelvis Exam: Back/Spine: full ROM Routine Neurological Exam: Present alert and oriented X3 Routine Psychiatric Exam: Present normal affect OB - Results Labs Labs: Short CBC 12/16/21 Range/Units 06:30 WBC 13.20 H (4.50-11.00) K/uL Hgb 12.3 (12.0-16.0) gm/dL Hct 36.0 (33.0-51.0) % Plt Count 259 (140-440) K/uL OB - Problem Based A/P Additional Plan (1) Term : Status: Acute Plan Term with history of covid and borderline IUGR Delivery/Labor/Induction Plan Plan: induction Induction method: other (Will start pitocin if AROM doesn't induce labr)
[2021-12-16] MEDS: LACTATED RINGERS 1000 ML 1,000 ML 125 ML IV ×2 (12:25→14:20)
[2021-12-16] MEDS: OXYTOCIN 30 unit/500 ML in NS 30 UNIT/500 ML BAG IVPB (12:25)
[2021-12-16] MEDS: fentaNYL 250 MCG/5 ML inj 100 MCG EPIDURAL (13:25)
[2021-12-16] MEDS: ROPIVACAINE 0.2% 100 ml 100 ML 12 MG EPIDURAL (13:40)
[2021-12-16] MEDS: LIDOCAINE 2% (PF) 5 ML VIAL EPIDURAL (13:40)
--- NOTE | 2021-12-16 13:49 | P.ANBPRC_ITS ---
[facility] Medical History (Updated 12/16/21 @ 07:46 by rEi Johnson MD) Term Social History Smoking Status: Never smoker Meds Home Medications and Allergies Home Medications Medication Instructions Recorded Confirmed Type docosahexaenoic acid PO 12/16/21 History Allergies Allergy/AdvReac Type Severity Reaction Status Date / Time honey Allergy Swelling Verified 12/16/21 06:18 of Lip/Tongue/Throat bees Allergy Severe Anaphylaxis Uncoded 12/16/21 06:18 pencillin Allergy Severe Anaphylaxis Uncoded 12/16/21 06:18 Results Labs Labs: Laboratory Results - last 24 hr 12/16/21 12/16/21 12/16/21 06:08 06:30 06:30 WBC 13.20 H RBC 4.16 Hgb 12.3 Hct 36.0 MCV 87 MCH 30 MCHC 34 RDW Coeff of Raisa 12.5 Plt Count 259 Neut % (Auto) 79.4 H Lymph % (Auto) 14.2 L [place] % (Auto) 4.9 Eos % (Auto) 0.2 Baso % (Auto) 0.3 Neut # (Auto) 10.50 H Lymph # (Auto) 1.90 [place] # (Auto) 0.60 Eos # (Auto) 0.00 Baso # (Auto) 0.00 Abs Immat Gran (auto) 0.13 SARS-CoV-2 (PCR) Negative SARS-CoV-2 Blood Type O Positive Antibody Screen NEGATIVE Vital Signs Vital Signs: Last Vital Signs Temp 98.2 F 12/16/21 13:45 Pulse 105 H 12/16/21 13:47 Resp 16 12/16/21 06:32 BP 112/69 12/16/21 13:47 Pulse Ox 100 12/16/21 13:48 Weight: 72.348 kg Height: 161.29 cm Anesthesia Procedures Epidural Insertion Patient Location: OB Start Time: 13:00 Stop Time: 14:00 Start Date: 12/16/21 Stop Date: 12/16/21 Reason for Block: primary anesthetic Patient Position: sitting Performed By: Hang Villagomez Preanesthetic Checklist: IV checked, risks and benefits discussed, surgical consent, monitors and equipment checked, pre-op evaluation, timeout performed and anesthesia consent Prep: chlorhexidine gluconate Monitoring: blood pressure monitoring, fire dispatcher, continuous pulse oximetry and heart rate Approach: midline Vertebral Space: lumbar (1-5) Needle Type: Tuohy needle Injection Technique: continuous catheter Needle gauge: 17 Needle Length (cm): 10 cm Needle Insertion Depth (cm): 6 Catheter Gauge: 19 Catheter Type: multi-orifice Catheter at skin depth (cm): 12 Test Dose Result: negative and lidocaine 1.5% with epinephrine 1 to 200,000 Events: other
[2021-12-16] MEDS: PHENYLEPHRINE 100 MCG/ML SYRINGE IVP ×3 (13:56→15:37)
--- NOTE | 2021-12-16 15:18 | PM.OBPNL ---
Pain Control Date Seen: 12/16/21 Pain control: epidural Contractions Monitor mode: External Contraction frequency: 4 Contraction pattern: Irregular Contraction intensity: Strong/Firm Pelvic Exam Dilation (cm): 7 Effacement (%): 90 Station: 0 Fetus (Single) Amniotic Membrane Status: AROM status: Category l Comments: with early decelerations Assessment and Plan Pitocin rate (mU/min): 3 Assessment: active labor and induction ongoing Plan: continue present management
[2021-12-16] MEDS: ONDANSETRON 2 MG/ML inj 4 MG IV (15:43)
[2021-12-16] MEDS: LACTATED RINGERS 1000 ML 1,000 ML 525 ML IV (17:02)
--- NOTE | 2021-12-16 18:25 | PM.OBPRCVD ---
Procedure Procedure Done: [facility] Procedure Details: The patient is a 26 year-old admitted on 11/15/21 at 39 Weeks, 0 Days gestation for IOL for covid in with EFW at 10% (previously 30%).? Cervical exam on admission was 3 cm/60 % effaced/-2 station with membranes intact in vertex presentation.? Contractions were rare.? heart rate demonstrated baseline 140 bpm with moderate variability, + accelerations, - decelerations; a category 1 tracing.? AROM occurred at 0735 with clear/blood tinged fluid. ? Labor Analgesia:? epidural ? Pitocin:? yes ? Labor onset:? 1300 ? Complete:? 1654 ? Pushing:? 1707 ? heart tones during second stage were catecory 2 with early decelerations. ? At 181 a viable female delivered in vertex OA presentation over intact perineum via spontaneous vaginal delivery.? Infant was placed on maternal abdomen.? Cord was clamped and cut after a 30-60 second delay.? Nose and mouth were bulb suctioned.? weight pending.? 7 at 1 minute and 8 at 5 minutes.? Shoulder dystocia: no.? Nuchal cord: no. ? Placenta delivered spontaneously and complete at 181 with a 3 vessel cord. ? Mother and infant were stable after delivery. ? Lacerations:? none. ? Blood loss: 50 mL. Blood loss measurement type: QBL ? Sponge and needles counts are correct. Intrapartal Events: Labor Induction Induction method: AROM Delivery augmentation: pitocin Delivery monitor: external FHT Route of delivery: Laceration description: None Infant Gender: Female presentation: vertex Placental Delivery Description: Spontaneous Cord Description: 3 Vessels
[2021-12-16] MEDS: IBUPROFEN 600 MG TABLET PO (20:29)
[2021-12-17 01:04] VITALS: BP 120/69; RESP 16; TEMP 36.7; O2SAT 97
[2021-12-17] MEDS: ACETAMINOPHEN 500 MG TABLET 1000 MG PO ×2 (01:10→07:23)
[2021-12-17] MEDS: IBUPROFEN 600 MG TABLET PO ×3 (03:53→20:13)
[2021-12-17 04:00] VITALS: BP 109/74; PULSE 98; RESP 16; TEMP 36.6; O2SAT 98
[2021-12-17 07:22] LABS: Hemoglobin* 11.3 gm/dL (12.0-16.0)
[2021-12-17 07:25] VITALS: BP 107/59; PULSE 74; RESP 16; TEMP 36.6; O2SAT 97
--- NOTE | 2021-12-17 07:51 | PM.OBPNVD1 ---
OB - PN:Subj Subjective Date Seen: 12/17/21 Patient comments OB post-: no complaints [place] status: feeding status: exclusively OB - PN: Obj Exam Physical Exam: Vital signs: Temp Pulse Resp BP Pulse Ox O2 Del Method 97.9 F 74 16 107/59 L 97 12/17/21 07:25 12/17/21 07:25 12/17/21 07:25 12/17/21 07:25 12/17/21 07:25 12/17/21 07:25 Narrative: HEENT: Eyes: no lid swelling, scleral icterus or redness Ears: Normal external ears Nose: No drainage Oropharynx: Moist mucous membranes Heart RRR without murmur Lungs: clear. Abdomen: gravid Extremities: No swelling Skin: pink and warm OB - PN: Obj Data Labs Labs: Laboratory Results - last 24 hr 12/16/21 12/17/21 06:30 07:10 Hgb 11.3 L Blood Type O Positive Antibody Screen NEGATIVE OB - PN: A/P Vaginal Delivery Assessment and Plan (1) Term : Status: Acute Plan Doing well day 1. Routine cares Plan Plan: routine care
[2021-12-17] MEDS: DOCUSATE SODIUM 100 MG CAPSULE PO (08:38)
[2021-12-17 12:20] VITALS: BP 108/72; PULSE 67; RESP 16; TEMP 36.6; O2SAT 98
[2021-12-17 17:45] VITALS: BP 121/85; PULSE 67; RESP 16; TEMP 36.5
[2021-12-17 20:11] VITALS: BP 118/78; PULSE 75; RESP 18; TEMP 36.6; O2SAT 97
[2021-12-18] MEDS: IBUPROFEN 600 MG TABLET PO (02:21)
[2021-12-18 03:05] VITALS: BP 115/78; PULSE 75; RESP 16; TEMP 36.7; O2SAT 98
[2021-12-18 08:30] VITALS: BP 120/80; PULSE 75; RESP 16; TEMP 36.7
--- NOTE | 2021-12-18 09:21 | PM.OBDSVD1 ---
DS: Providers Provider Date Seen: 12/18/21 Date of admission: 12/16/21 05:54 Primary care physician: Eri Johnson MD Admitting Clinician: Eri Johnson MD Attending Physician on discharge: Eri Johnson MD Exam Narrative: Exam Narrative: HEENT: Eyes: no scleral icterus redness Ears: normal external ears Nose: no drainage Neck: normal Heart RRR no murmur Lungs: clear Abdomen: pos bowel sounds exam uterine fundus below umbilicus Skin: pink Ext: no swelling Mental status: appropriate Const: Vital Signs, click to edit/add: Vital Signs - 24 hr 12/17/21 12:20 12/17/21 17:45 12/17/21 20:11 Temperature 97.9 F 97.7 F 97.9 F Pulse Rate [Pulse Oximeter] 67 67 75 Respiratory Rate 16 16 18 Blood Pressure [Le ft Arm] 108/72 121/85 118/78 Pulse Oximetry 98 97 Oxygen Delivery Me thod Room Air Room Air Room Air 12/18/21 03:05 12/18/21 08:30 Temperature 98.0 F 98.0 F Pulse Rate [Pulse Oximeter] 75 75 Respiratory Rate 16 16 Blood Pressure [Le ft Arm] 115/78 120/80 Pulse Oximetry 98 Oxygen Delivery Me thod Room Air Room Air OB - DS: Summary Hospital Course Hospital Course: The patient is a 26 year old G 2 now P 2 at 39 weeks gestation that was admitted to the Center on 12/16/21 for maternal h/o of Covid in . She had an uncomplicated vaginal delivery. She delivered a viable female infant. She is breast feeding. the patient has done well. Gender: Female Time Spent with Patient Time attestation: Total time spent providing and/or coordinating discharge services: Discharge Plan Discharge Disposition: Home, Self-Care Date of Admission: 12/16/21 05:54 Primary Care Provider: Eri Johnson Condition: Stable Anticipated Discharge Date/Time: 12/18/21 15:00 Discharge Medications: Continued docosahexaenoic acid [ DHA] PO Discharge Orders: Discharge Order (Routine); Ordered 12/18/21 Ordered By: Chelsey Morrison Patient Education: Vaginal Delivery (DC) Follow Up Appointments: Eri Johnson MD [Primary Care Provider] - Forms: [facility] Info Instructions Discharge Comments: follow up with Dr Johnson at 6 wks for post exam sooner if issues arise
== END 2021-12-18 14:30 | disposition home or self-care (01) | DRG 560 ==
PROVIDERS: Admitting Provider Family Medicine; PCP Family Medicine; Visit Provider Family Medicine
DX: O98.52 Other viral diseases complicating childbirth (principal); U07.1 COVID-19; O36.5930 Maternal care for other known or suspected poor fetal growth, third trimester, not applicable or unspecified; Z3A.39 39 weeks gestation of pregnancy; Z37.0 Single live birth
CPT/HCPCS: 01967; 36415; 85018; 85025; 86850; 86900; 86901; 87635; A9270; J2370; J2405; J2795; J3010; J7120

== ENCOUNTER 2024-06-19 12:12 | Outpatient (CLI) | payer BC, SELFPAY ==
[2024-06-19 12:49] VITALS: BP 123/75; PULSE 83; PULSE 98; RESP 16; TEMP 37.3; O2SAT 97
--- NOTE | 2024-06-19 13:40 | PC.OBNST ---
NST Note NST Note Start: 06/19/24 12:36 Freq: ONCE Status: Active Protocol: Document 06/19/24 13:39 MMB (Rec: 06/19/24 13:40 MMB [id number]) NST Note 3 Para (# of births) 2 EDC 06/27/24 Gestational Age In Weeks & Days 38 Weeks & 6 Days Reactive Yes Appropriate for Gestational Age Yes RN Padmini Rayo rN Date 06/19/24 Reactive Yes Appropriate for Gestational Age Yes LAURITA Jarquin RN Date 06/19/24 OB NST charge Yes Complete NST Note via Write Note Yes The provider's electronic signature indicates the NST is reactive/appropriate for gestational age. *Note to provider: If an addendum is required, open the patient's chart and click on the note under the Nurse/Allied Health tab.
== END 2024-06-19 13:15 | disposition home or self-care (01) ==
LOC: OB OUT 12:17 → OB 12:20
PROVIDERS: PCP Family Medicine; Visit Provider Family Medicine
DX: O47.1 False labor at or after 37 completed weeks of gestation (principal); Z3A.38 38 weeks gestation of pregnancy
CPT/HCPCS: 59025; G0463

== ENCOUNTER 2024-06-23 05:43 | Inpatient (IN) | payer BC, SELFPAY ==
[2024-06-23] VITALS (31 sets, daily range): BP systolic 109–141; BP diastolic 56–88; PULSE 62–97; RESP 16; TEMP 36.7–37.4; O2SAT 96–98; BMI 28.0
[2024-06-23 06:49] LABS: Basophils Percent Auto 0.4 % (0.0-3.0); Eosinophils Percent Auto 0.3 % (0.0-7.0); Hematocrit 35.8 % (33.0-51.0); Hemoglobin* 12.2 gm/dL (12.0-16.0); Immature Granulocytes Pct Auto 0.5 %; Lymphocytes Percent Auto 15.1 % (20-44); Mean Corpuscular HGB Conc 34 gm/dL (32-36); Mean Corpuscular Hemoglobin 30 pg (26-34); Mean Corpuscular Volume 87 fL (80-100); Monocytes Percent Auto 5.4 % (0.0-11.0); Neutrophils Percent Auto 78.3 % (42.0-72.0); Platelet Count* 215 K/uL (140-440); RDW Coefficient of Variation % 12.7 % (11.5-15.5); Red Blood Count 4.12 m/uL (4.00-5.20); White Blood Count* 12.85 K/uL (4.50-11.00)
[2024-06-23 06:53] LABS: Slide Review Reflex No
[2024-06-23] MEDS: OXYTOCIN 30 unit/500 ML in NS 30 UNIT/500 ML BAG IVPB (06:59)
[2024-06-23] MEDS: LACTATED RINGERS 500 ML 500 ML 125 ML IV ×2 (07:00→13:19)
--- NOTE | 2024-06-23 12:02 | PM.OBHPLI ---
OB - H&P: HPI Labor/Induction History of Present Illness Date Seen: 06/23/24 Chief Complaint: The patient is a 28 year old 3 para 2001 at 39+3 weeks gestation by LMP and confirmed with first trimester US, who presents for elective induction at term.. Chief complaint: Maternity Narrative: Arabella Reese is a 28 year old at 39+3 weeks by LMP here today for elective induction at term. She has noted decreased movement over the last several days, but no LOF, no contractions. Had some bloody show last week, but that stopped over the weekend. has been uncomplicated. She is GBS negative. History of Present Dating criteria: based on LMP care: good care Ultrasounds: normal 1st trimester US and normal mid trimester US Medical complications: none Labs Blood type: O (+) positive Rubella: immune RPR/VDLR: nonreactive GBS status: negative HBsAG: negative Review of Systems Status of ROS: Reports: 6 or more systems reviewed and unremarkable except as noted in History and below Meds Home Medications and Allergies Home Medications ?Medication ?Instructions ?Recorded ?Confirmed ?Type No Known Home Medications 06/23/24 06/23/24 History Allergies Allergy/AdvReac Type Severity Reaction Status Date / Time honey Allergy Swelling Verified 12/16/21 06:18 of Lip/Tongue/Throat bees Allergy Severe Anaphylaxis Uncoded 12/16/21 06:18 pencillin Allergy Severe Anaphylaxis Uncoded 12/16/21 06:18 OB - H&P: Exam Physical Exam: Vital signs: Temp Pulse Resp BP 99.3 F 69 16 118/73 06/23/24 09:17 06/23/24 09:17 06/23/24 05:59 06/23/24 09:17 Constitutional: Constitutional: no acute distress Routine HEENT Exam: Head: Present atraumatic Eye: Present EOMI and normal appearance ENT: Present mucous membranes moist Routine Neck Exam: Neck: Present full ROM Routine Respiratory Exam: Respiratory: Present CTA bilaterally Routine Cardiovascular Exam: Cardiovascular: RRR Detailed Labor and Delivery Exam: Patient Gravid: Yes Dilation (cm): 6 Effacement (%): 70 Cervix position: mid Consistency: soft Contraction intensity: Mild Fetus (Single): Station: -1 Amniotic Membrane Status: AROM Amniotic Membrane Fluid Description: Clear Heart Rate Baseline: 130 Monitor Accelerations: Present Monitor Decelerations: None Ar[employer] Operator Variability: Moderate (6-25) Routine Back/Spine/Pelvis Exam: Back/Spine: full ROM Routine Skin Exam: Present intact Routine Neurological Exam: Present alert, oriented X3 and CN II-XII intact OB - Results Labs Labs: Short CBC 06/23/24 Range/Units 06:40 WBC 12.85 H (4.50-11.00) K/uL Hgb 12.2 (12.0-16.0) gm/dL Hct 35.8 (33.0-51.0) % Plt Count 215 (140-440) K/uL OB - Problem Based A/P Additional Plan (1) Term : Status: Acute Plan Patient started on pitocin per protocol. (stopped for 1.5 hours due to staffing) Now with AROM with return of large amount of clear fluid. Will restart pitocin per protocol. Delivery/Labor/Induction Plan Plan: induction Induction method: per pitocin protocol
[2024-06-23] MEDS: LACTATED RINGERS 1000 ML 1,000 ML 125 ML IV ×2 (12:36→14:07)
[2024-06-23] MEDS: LIDOCAINE 2% (PF) 5 ML VIAL EPIDURAL (13:35)
[2024-06-23] MEDS: ROPIVACAINE 0.2% 100 ml 100 ML 10 MG EPIDURAL (13:36)
--- NOTE | 2024-06-23 13:41 | PM.ANBPRC ---
[facility] Medical History Term ?Z34.90 - Encounter for supervision of normal , unspecified, unspecified trimester (ICD-10) Surgical History (Updated 06/23/24 @ 12:07 by Eri Johnson MD) History of tonsillectomy ?Z90.89 - Acquired absence of other organs (ICD-10) Social History What is your current living situation?: I presently have a place to live Problems where you live: no known problems In the past 12 months, utilities in danger of being shut off: no In past 12 months, lack of transportation kept you from medical appts, meetings, work, or getting things needed for daily living: no In the past 12 mos, have been you worried that your food would run out before you had money to buy more?: never true In the past 12 mos, the food you bought just didn't last and you didn't have money to buy more?: never true Smoking Status: Never smoker How often does anyone, including family, friends and others, physically hurt you: never How often does anyone, including family, friends and others, insult or talk down to you: never How often does anyone, including family, friends and others, threaten you with harm: never How often does anyone, including family, friends and others, scream or curse at you: never Meds Home Medications and Allergies Home Medications ?Medication ?Instructions ?Recorded ?Confirmed ?Type No Known Home Medications 06/23/24 06/23/24 History Allergies Allergy/AdvReac Type Severity Reaction Status Date / Time bee venom protein (honey bee) Allergy Severe Anaphylaxis Verified 06/23/24 13:30 Penicillins Allergy Severe Anaphylaxis Verified 06/23/24 13:30 honey Allergy Swelling Verified 12/16/21 06:18 of Lip/Tongue/Throat Results Labs Labs: Laboratory Results - last 24 hr 06/23/24 06:40 WBC 12.85 H RBC 4.12 Hgb 12.2 Hct 35.8 MCV 87 MCH 30 MCHC 34 RDW Coeff of Raisa 12.7 Plt Count 215 Neut % (Auto) 78.3 H Lymph % (Auto) 15.1 L [place] % (Auto) 5.4 Eos % (Auto) 0.3 Baso % (Auto) 0.4 Neut # (Auto) 10.10 H Lymph # (Auto) 1.90 [place] # (Auto) 0.70 Eos # (Auto) 0.00 Baso # (Auto) 0.10 Abs Immat Gran (auto) 0.10 Imm/Tot Granulo (auto) 0.5 Blood Type O Positive Antibody Screen NEGATIVE Vital Signs Vital Signs: Last Vital Signs Temp 98.5 F 06/23/24 12:41 Pulse 82 06/23/24 13:39 Resp 16 06/23/24 05:59 BP 122/79 06/23/24 13:39 Weight: 71.713 kg Height: 160.02 cm Anesthesia Procedures Epidural Insertion Patient Location: OB Start Time: 13:15 Stop Time: 13:45 Start Date: 06/23/24 Stop Date: 06/23/24 Reason for Block: primary anesthetic Patient Position: sitting Performed By: Antonio Bazan Preanesthetic Checklist: IV checked, risks and benefits discussed, surgical consent, monitors and equipment checked, pre-op evaluation, timeout performed and anesthesia consent Prep: chlorhexidine gluconate Monitoring: blood pressure monitoring, laboratory monitor, continuous pulse oximetry and heart rate Approach: midline Vertebral Space: lumbar (1-5) Needle Type: Tuohy needle Injection Technique: continuous catheter (catheter) Needle gauge: 17 Needle Length (cm): 10 cm Needle Insertion Depth (cm): 5 Catheter Gauge: 19 Catheter Type: multi-orifice Catheter at skin depth (cm): 10 Test Dose Result: negative and lidocaine 1.5% with epinephrine 1 to 200,000
--- NOTE | 2024-06-23 14:59 | PM.OBPNL ---
Subjective Date Seen: 06/23/24 Narrative: Gail is a 28 yo at 39+3 admitted for elective induction. She is now comfortable with an epidural after contractions became significantly stronger at AROM. Objective Vital Signs: Last Vital Signs Temp 98.5 F 06/23/24 12:41 Pulse 82 06/23/24 14:54 Resp 16 06/23/24 05:59 BP 115/82 06/23/24 14:54 Pelvic Exam Dilation (cm): 7 Effacement (%): 90 Station: 0 Contractions Monitor mode: External Contraction pattern: Regular Contraction intensity: Strong/Firm Pitocin Rate (mU/min): 10 Assessment Assessment: active labor Station: -1 Amniotic Membrane Status: AROM Status: Category l Heart Rate Baseline: 130 Fpc Variability: Moderate (6-25) Monitor Accelerations: Present Monitor Decelerations: None
[2024-06-23] MEDS: ONDANSETRON 2 MG/ML inj 4 MG IV (15:08)
[2024-06-23] MEDS: miSOPROStoL 800 MCG/4 TABLET PR (16:46)
--- NOTE | 2024-06-23 16:49 | W.PM.VAGDEL1 ---
Procedure Delivery date: 06/23/24 Procedure Done: Global Intrapartal Events: Labor Induction Delivery augmentation: rupture of membranes Delivery monitor: external FHT and external uterine Route of delivery: Laceration description: Perineal - 2nd Degree Delivery repair: Vicryl Estimated blood loss (mL): 75 Anesthesia type: Epidural Disposition: floor Narrative: The patient is a 28 year-old admitted on 06/23/2024 at 39 Weeks, 3 Days gestation for elective induction.? Cervical exam on admission was 4 cm/60 % effaced/-2 station with membranes intact in vertex presentation.? Contractions were rare.? heart rate demonstrated baseline 130 bpm with moderate variability, + accelerations, - decelerations; a category 1 tracing.? Pitocin was started on arrival, but then stopped between 1030 and 12 due to staffing. Pitocin restarted with AROM occurred at 1157 with c fluid. ? Labor Analgesia:? epidural ? Pitocin:? yes ? Labor onset:? 1157 ? Complete:? 1550 ? Pushing:? 1550 ? heart tones during second stage were category 2. ? At 1613 a viable male infant delivered in vertex OA presentation over intact perineum via spontaneous vaginal delivery.? Infant was placed on maternal abdomen.? Cord was clamped and cut after a 30-60 second delay.? Nose and mouth were bulb suctioned.? weight pending.? 7 at 1 minute and 9 at 5 minutes.? Shoulder dystocia: no.? Nuchal cord: no. ? Placenta delivered spontaneously and complete at 1617 with a 3 vessel cord. ? Mother and infant were stable after delivery. ? Lacerations:? 2nd degree, repaired with 3-0 vicryl suture. ? Blood loss: 75 mL immediately after . However, about 30 minutes later, patient noted to have moderate bleeding, a few small clots with boggy uterus which did not respond to bimanual massage, rectal cytotec given. Blood loss measurement type: QBL ? Sponge and needles counts are correct. [place] Infant Gender: Male presentation: vertex Placental Delivery Description: Spontaneous Cord Description: 3 Vessels
[2024-06-23] MEDS: IBUPROFEN 600 MG TABLET PO (19:33)
[2024-06-23] MEDS: LANOLIN CREAM 1 APPLIC TOPICAL (22:10)
[2024-06-23] MEDS: ACETAMINOPHEN 500 MG TABLET 1000 MG PO (22:10)
[2024-06-23] MEDS: DOCUSATE SODIUM 100 MG CAPSULE PO (22:11)
[2024-06-24 00:37] VITALS: BP 106/60; PULSE 61; RESP 16; TEMP 36.8; O2SAT 97
[2024-06-24] MEDS: IBUPROFEN 600 MG TABLET PO ×2 (02:06→08:16)
[2024-06-24] MEDS: ACETAMINOPHEN 500 MG TABLET 1000 MG PO ×2 (04:30→12:33)
[2024-06-24] MEDS: BENZOCAINE/MENTHOL SPRAY 85 GM AEROSOL 1 APPLIC TOPICAL (04:31)
[2024-06-24 04:33] VITALS: BP 105/72; PULSE 67; RESP 16; TEMP 36.3; O2SAT 98
[2024-06-24 06:51] LABS: Hemoglobin* 11.1 gm/dL (12.0-16.0)
--- NOTE | 2024-06-24 07:32 | PM.OBDSVD1 ---
DS: Providers Provider Time Seen by Provider: 07:32 Date Seen: 06/24/24 Date of admission: 06/23/24 05:43 Primary care physician: Eri Johnson MD Admitting Clinician: Eri Johnson MD Attending Physician on discharge: Gertrudis Suazo MD Date of Discharge: 06/24/24 DS: Diagnosis Discharge Diagnosis (1) (normal spontaneous vaginal delivery): Status: Acute Exam Const: Vital Signs, click to edit/add: Vital Signs - 24 hr 06/23/24 08:09 06/23/24 09:17 06/23/24 09:17 Temperature 99.3 F Pulse Rate 72 69 Pulse Rate [Pulse Oximeter] Respiratory Rate Blood Pressure 120/80 118/73 Blood Pressure [Le ft Arm] Pulse Oximetry Oxygen Delivery [facility] 06/23/24 12:41 06/23/24 12:41 06/23/24 13:31 Temperature 98.5 F Pulse Rate 71 75 Pulse Rate [Pulse Oximeter] Respiratory Rate Blood Pressure 119/76 132/79 Blood Pressure [Le ft Arm] Pulse Oximetry Oxygen Delivery [facility] 06/23/24 13:33 06/23/24 13:35 06/23/24 13:37 Temperature Pulse Rate 90 81 77 Pulse Rate [Pulse Oximeter] Respiratory Rate Blood Pressure 138/83 130/79 122/82 Blood Pressure [Le ft Arm] Pulse Oximetry Oxygen Delivery [facility] 06/23/24 13:39 06/23/24 13:45 06/23/24 13:51 Temperature Pulse Rate 82 84 71 Pulse Rate [Pulse Oximeter] Respiratory Rate Blood Pressure 122/79 121/78 120/69 Blood Pressure [Le ft Arm] Pulse Oximetry Oxygen Delivery [facility] 06/23/24 14:09 06/23/24 14:24 06/23/24 14:40 Temperature Pulse Rate 68 64 78 Pulse Rate [Pulse Oximeter] Respiratory Rate Blood Pressure 117/79 120/80 121/72 Blood Pressure [Le ft Arm] Pulse Oximetry Oxygen Delivery [facility] 06/23/24 14:54 06/23/24 15:10 06/23/24 15:24 Temperature Pulse Rate 82 65 62 Pulse Rate [Pulse Oximeter] Respiratory Rate Blood Pressure 115/82 120/80 122/80 Blood Pressure [Le ft Arm] Pulse Oximetry Oxygen Delivery [facility] 06/23/24 15:39 06/23/24 15:55 06/23/24 16:07 Temperature Pulse Rate 74 72 Pulse Rate [Pulse Oximeter] Respiratory Rate Blood Pressure 130/88 120/58 L Blood Pressure [Le ft Arm] Pulse Oximetry 98 Oxygen Delivery Me thod 06/23/24 16:12 06/23/24 16:32 06/23/24 16:32 Temperature 98.3 F Pulse Rate 82 Pulse Rate [Pulse Oximeter] Respiratory Rate Blood Pressure 141/56 H Blood Pressure [Le ft Arm] Pulse Oximetry 98 Oxygen Delivery Me thod 06/23/24 16:46 06/23/24 16:46 06/23/24 17:02 Temperature 98.3 F Pulse Rate 75 70 Pulse Rate [Pulse Oximeter] Respiratory Rate Blood Pressure 119/57 L 110/60 Blood Pressure [Le ft Arm] Pulse Oximetry Oxygen Delivery Me thod 06/23/24 17:02 06/23/24 17:16 06/23/24 17:16 Temperature 98.7 F 98.5 F Pulse Rate 74 Pulse Rate [Pulse Oximeter] Respiratory Rate Blood Pressure 114/69 Blood Pressure [Le ft Arm] Pulse Oximetry Oxygen Delivery Me thod 06/23/24 17:31 06/23/24 17:31 06/23/24 17:46 Temperature 98.4 F Pulse Rate 69 72 Pulse Rate [Pulse Oximeter] Respiratory Rate Blood Pressure 110/66 116/72 Blood Pressure [Le ft Arm] Pulse Oximetry Oxygen Delivery Id thod 06/23/24 17:46 06/23/24 18:01 06/23/24 18:17 Temperature 98.3 F Pulse Rate 72 83 Pulse Rate [Pulse Oximeter] Respiratory Rate Blood Pressure 117/69 110/59 L Blood Pressure [Le ft Arm] Pulse Oximetry Oxygen Delivery Id thod 06/23/24 18:31 06/23/24 22:13 06/24/24 00:37 Temperature 98.1 F 98.2 F Pulse Rate 77 Pulse Rate [Pulse Oximeter] 73 61 Respiratory Rate 16 16 Blood Pressure 114/73 Blood Pressure [Le ft Arm] 109/72 106/60 Pulse Oximetry 96 97 Oxygen Delivery Me thod Room Air Room Air 06/24/24 04:33 Temperature 97.3 F L Pulse Rate Pulse Rate [Pulse Oximeter] 67 Respiratory Rate 16 Blood Pressure Blood Pressure [Le ft Arm] 105/72 Pulse Oximetry 98 Oxygen Delivery Me thod Room Air Documenting provider has reviewed patient's vital signs: yes Common normals: no apparent distress General appearance: cooperative and comfortable Orientation/consciousness: Yes awake and Yes oriented to person HENMT: Common normals: normocephalic and head/scalp atraumatic Head and scalp: normocephalic and atraumatic Eye: Common normals: conjunctivae normal General eye: normal appearance of both eyes Conjunctiva: conjunctiva(e) normal Neck & C-Spine: Common normals: full ROM Chest: Common normals: inspection of chest normal Resp: Common normals: normal respiratory effort, no retractions and clear to auscultation bilaterally Auscultation: clear to auscultation bilaterally Cardio: Common normals: regular rate and regular rhythm Rate: regular rate Rhythm: regular rhythm Heart sounds: no murmurs GI: Inspection: normal to inspection Auscultation: normoactive bowel sounds : Uterus: U/1 Extremity: Common normals: no pedal edema Neuro: Sensorium/orientation: awake and oriented to person Psych: Common normals: speech normal Speech: normal speech Skin: Common normals: no rashes or lesions noted General skin exam: no rashes or lesions noted OB - DS: Summary Hospital Course Hospital Course: The patient is a 28 year old G 3 P 3 at 39.3 weeks gestation that was admitted to the [facility] on 06/23/24 for elective IOL. She had an uncomplicated vaginal delivery. She delivered a viable male infant. She is breast feeding. She had a hemorrhage requiring rectal cytotec. the patient has done well. Peripartum Data delivery method: Vaginal Laceration description: Perineal - 2nd Degree complications: other (delayed hemorrhage requiring rectal cytotec) Gender: Male Discharge Plan: Home Status at Discharge Functional status at discharge: independent ambulation Overall status at discharge: patient is back to baseline Time Spent with Patient Time attestation: Total time spent providing and/or coordinating discharge services: Time spent: Less than 30 minutes Discharge Plan Discharge Disposition: Home, Self-Care Date of Admission: 06/23/24 05:43 Attending Provider on Discharge: Gertrudis Suazo Primary Care Provider: Eri Johnson Condition: Improved Anticipated Discharge Date/Time: 06/24/24 18:00 Discharge Medications: Continued No Known Home Medications Discharge Orders: Discharge Order (Routine); Ordered 06/24/24 Ordered By: Gertrudis Suazo Consulting provider completed their portion of the discharge: Yes Patient Education: OB Vaginal/Breast Feeding Activity Level: Activity as Tolerated Activity Detail: 6 weeks pelvic rest, nothing in the vagina. Discharge Diet: Regular Diet Detail: high iron diet Follow Up Appointments: Eri Johnson MD [Primary Care Provider] - Forms: [facility] Info Instructions Discharge Comments: Follow up in [address] Johnson. Sooner with concerns. Please take tylenol/motrin as needed for pain management. Please try to be on high iron diet, and take iron supplement (ferrous sulfate or ferrous gluconate) every other day as tolerated to bring your iron level back to normal after blood loss.
[2024-06-24 08:09] VITALS: BP 114/76; PULSE 76; RESP 18; O2SAT 98
[2024-06-24 12:24] LABS: Rapid Plasma Reagin (RPR) Non Reactive (Non Reactive)
[2024-06-24 12:38] VITALS: BP 111/73; PULSE 76; RESP 18; TEMP 36.9; O2SAT 97
--- NOTE | 2024-06-24 13:03 | PM.ANPOST ---
Post Anesthesia Note Post Anesthesia Note Patient seen: Inpatient Respiratory Status: adequate Cardiovascular Status: adequate Mental Status: baseline Pain: adequate Temp: baseline Anesthetic awareness: N/A Complications: none Follow care: none
== END 2024-06-24 19:09 | disposition home or self-care (01) | DRG 560 ==
PROVIDERS: Admitting Provider Family Medicine; PCP Family Medicine; Visit Provider Family Medicine
DX: O70.1 Second degree perineal laceration during delivery (principal); Z3A.39 39 weeks gestation of pregnancy; Z37.0 Single live birth; O72.2 Delayed and secondary postpartum hemorrhage; O76 Abnormality in fetal heart rate and rhythm complicating labor and delivery
CPT/HCPCS: 01967; 36415; 85018; 85025; 86592; 86850; 86900; 86901; A9270; J2371; J2405; J2795; J7120

== ENCOUNTER 2024-09-23 11:21 | Emergency (ER) | payer BC, SELFPAY ==
--- OUTSIDE RECORDS SUMMARY | 2024-09-23 11:23 | XMS_ITS | Clinical Summary ---
[facility] Address [address], [place] [address] Care Team Providers Care Broadcast Field Supervisor Name Role Phone Unavailable Primary Care Provider Unavailabl e Source Comments You are receiving this document as you are listed as the primary care provider,follow-up provider, or the patient has been referred to you for consultation.This is in compliance with the Medicare and[facility] Hospital[facility] EHR Incentive Program,which states Providers who transition their patient to another setting of careor provider of care or refers their patient to another provider of care shouldprovide summary care record for each transition of care or referral. [facility] Allergies Active Allergy Reactions Criticality Noted Date Comments Penicillins Other, see comments 03/27/2017 Swelling in throat Medications levonorgest-eth estrad 91-Day ([place]) 0.15-0.03 MG tabletIndications: Encounter for contraceptive management, unspecified type Take 1 Tab by mouth daily. 91 Tab 3 03/27/2017 Active Immunizations Immunization Administration Dates Next Due Afluria (18+yrs) 01/17/2017 Social History Tobacco Use Types Packs/Day Years Used Date Smoking Tobacco: Never Smokeless Tobacco: Never Comments Unknown Sex and Gender Information Value Date Recorded Sex Assigned at Not on file Legal Sex Female 2:40 PM SECURITY REP Gender Identity Not on file Sexual Orientation Not on file Last Filed Vital Signs Vital Sign Reading Time Taken Comments Blood Pressure 127/78 03/27/2017 10:52 AM SECURITY REP Pulse 76 03/27/2017 10:52 AM SECURITY REP Temperature - - Respiratory Rate - - Oxygen Saturation - - Inhaled Oxygen Concentration - - Weight 60.8 kg (134 lb) 03/27/2017 10:52 AM SECURITY REP Height 162.1 cm (5' 3.8) 03/27/2017 10:52 AM CS T Body Mass Index 23.15 03/27/2017 10:52 AM SECURITY REP Plan of Treatment Health Maintenance Due Date Last Done Comments Cervical Cancer Screening Due 1996 Hep C Screening (Preventive Services) 1996 HIV Screening (Preventive Services) 2012 Adult Preventive Visit 2014 DTaP/Tdap/Td Vaccine (1 - Tdap) 07/28/2015 HepB Vaccine (1) 07/28/2015 COVID-19 Vaccine (1 - 2023-2 5 season) 2023 Influenza Vaccine (#1) 2024 01/17/2017 Zoster/Shingles Vaccine (1 of 2) 2046 HPV Vaccine Aged Out No longer eligi ble based on patient's age to complete this topic HepA Vaccine Aged Out No longer eligi ble based on patient's age to complete this topic Hib Vaccine Aged Out No longer eligi ble based on patient's age to complete this topic IPV (Polio) Vaccine Aged Out No longe r eligible based on patient's age to complete this topic MCV4 Vaccine Aged Out No longer eligi ble based on patient's age to complete this topic Meningococcal B Vaccine Aged Out No l onger eligible based on patient's age to complete this topic Pneumococcal Vaccine Aged Out No long er eligible based on patient's age to complete this topic Insurance [facility]
[2024-09-23 11:28] VITALS: BP 119/83; PULSE 89; RESP 16; TEMP 36.2; O2SAT 96; BMI 27.1
--- NOTE | 2024-09-23 12:02 | ED.GENADULT ---
HPI - General Adult General Chief complaint: Breast Symptoms Stated complaint: possible misstates Time Seen by Provider: 09/23/24 11:49 History of Present Illness HPI narrative: This 29-year-old female comes in reporting fever and left breast redness and tenderness that began yesterday. She arrives here with normal vital signs. She did take ibuprofen prior to arrival. She states that she is and it feels better after expressing milk. Related Data Previous Rx's ?Medication ?Instructions ?Recorded dicloxacillin 500 mg capsule 500 mg PO Q6H #30 caps 09/23/24 Allergies Allergy/AdvReac Type Severity Reaction Status Date / Time bee venom protein (honey bee) Allergy Severe Anaphylaxis Verified 09/23/24 11:33 Penicillins Allergy Severe Anaphylaxis Verified 09/23/24 11:33 honey Allergy Swelling Verified 09/23/24 11:33 of Lip/Tongue/Throat Review of Systems Status of ROS: Reports: 10 or more systems reviewed and unremarkable except as noted in History and below Narrative: Constitutional: No weight gain or loss. Eyes: No discharge. No vision changes. HENT: No congestion, no sore throat, no ear pain. Cardiovascular: No chest pain, no palpitations. Respiratory: No shortness of breath, no wheezes, no cough. Gastrointestinal: No abdominal pain, no vomiting, no diarrhea. Genitourinary: No dysuria, no hematuria. Musculoskeletal: Normal range of motion. Skin: No rashes, no pruritis. Neurological: No dizziness, weakness, sensory change, speech change. Endo/Heme/Allergies: No bruising or bleeding. No polydipsia. Pysch: no suicidality, no anxiety, no insomnia. All other systems reviewed and are negative. [facility] Medical History (Updated 09/23/24 @ 12:06 by Samson Dunn MD) Term ?Z34.90 - Encounter for supervision of normal , unspecified, unspecified trimester (ICD-10) Surgical History (Updated 06/23/24 @ 12:07 by Eri Johnson MD) History of tonsillectomy ?Z90.89 - Acquired absence of other organs (ICD-10) Social History What is your current living situation?: I presently have a place to live Problems where you live: no known problems In the past 12 months, utilities in danger of being shut off: no In past 12 months, lack of transportation kept you from medical appts, meetings, work, or getting things needed for daily living: no In the past 12 mos, have been you worried that your food would run out before you had money to buy more?: never true In the past 12 mos, the food you bought just didn't last and you didn't have money to buy more?: never true Smoking Status: Never smoker How often does anyone, including family, friends and others, physically hurt you: never How often does anyone, including family, friends and others, insult or talk down to you: never How often does anyone, including family, friends and others, threaten you with harm: never How often does anyone, including family, friends and others, scream or curse at you: never Exam Narrative: Exam Narrative: Constitutional: Well-developed, well-nourished, no acute distress. HEENT: Normocephalic, atraumatic. Neck: Normal range of motion. Nontender. Supple. Heart: Regular. No murmurs. Normal rate. Intact distal pulses. Lungs: Clear to auscultation. No wheezes, rhonchi, or rales. Chest: Left breast has erythema on the lateral aspect. No palpable sign of abscess. Abdomen: Normal bowel sounds. Nontender. No rebound tenderness. Genitalia: Deferred. Back: No midline tenderness. Normal range of motion. Extremities: Normal range of motion. No injury. Skin: Intact. No rash. Warm. No erythema or pallor. Neurologic: No altered sensation. No weakness. Alert and oriented. Psychiatric: No suicidality. No anxiety or depression. No insomnia. Nursing notes and vitals signs are reviewed. Const: Vital Signs, click to edit/add: Vital Signs - 24 hr 09/23/24 11:28 Temperature 97.1 F L Pulse Rate [Left] 89 Respiratory Rate 16 Blood Pressure [Ri ght Upper Arm] 119/83 Pulse Oximetry 96 Oxygen Delivery Me thod Room Air Course Vital Signs Vital signs: Initial Vital Signs Temperature 97.1 F L 09/23/24 11:28 Temperature Source Temporal Artery Scan 09/23/24 11:28 Pulse Rate 89 09/23/24 11:28 Respiratory Rate 16 09/23/24 11:28 Blood Pressure 119/83 09/23/24 11:28 Blood Pressure Mean 95 09/23/24 11:28 Blood Pressure Position Sitting 09/23/24 11:28 Pulse Oximetry 96 09/23/24 11:28 Oxygen Delivery Method Room Air 09/23/24 11:28 Vital Signs Temperature 97.1 F L 09/23/24 11:28 Pulse Rate 89 09/23/24 11:28 Respiratory Rate 16 09/23/24 11:28 Blood Pressure 119/83 09/23/24 11:28 Pulse Oximetry 96 09/23/24 11:28 Oxygen Delivery Method Room Air 09/23/24 11:28 Temperature 97.1 F L 09/23/24 11:28 Pulse Rate 89 09/23/24 11:28 Respiratory Rate 16 09/23/24 11:28 Blood Pressure 119/83 09/23/24 11:28 Pulse Oximetry 96 09/23/24 11:28 Oxygen Delivery Method Room Air 09/23/24 11:28 Medical Decision Making MDM Narrative Medical decision making narrative: This patient has symptoms typical of a mastitis. Preferred treatment includes dicloxacillin. The patient states that she has had an allergy to penicillin from when she was really young. She states that it occurred after getting an injection of penicillin for strep throat. Since then she has had amoxicillin without any problem. She prefers to try dicloxacillin here to continue with that treatment for her mastitis. She did receive an oral dose of 500 mg and was observed without any symptoms. Discharge Plan Discharge Clinical Impression: Mastitis Patient Disposition: Home, Self-Care Condition: Unchanged Additional Instructions: Take medication as prescribed. Use [id number] medicines also as needed and directed. Continue as usual. Follow up with MD return if worsening. Prescriptions: New dicloxacillin 500 mg capsule 500 mg PO Q6H Qty: 30 0RF Follow Up/Referrals: Eri Johnson MD [Primary Care Provider, Family Practice] Stand Alone Forms: [employer] Info Instructions
--- OUTSIDE RECORDS SUMMARY | 2024-09-23 12:12 | XMS_ITS | Clinical Summary ---
Author Organization [employer] Address [address] [place] [id number] Care Team Providers Care User Experience Manager Name Role Phone Alex, Eri Robles MD Primary Care Provider Allergies Active Allergy Reactions Criticality Noted Date Comments Honey Anaphylaxis High 09/29/2013 Penicillins Rash 12/21/2009 PCN injection. Sweating Venom-Honey Bee Anaphylaxis High 11/13/2010 Medications norethindrone (Contraceptive) 0.35 mg tabletIndications: Encounter for contraceptive management, unspecified type Take 1 Tablet (0.35 mg) by mouth once daily. 84 Tablet 3 Active Active Problems Problem Noted Date Diagnosed Date Less than 8 weeks gestation of 024 Overview (06/19/2024): Estimated Date of Delivery: 06/27/24 Patient's last menstrual period was 09/21/2023. Starting 06/17/24, call ALEX when in labor. GBS: Vaginal/Rectal OB Strep B PCR Date Value Ref Range Status 06/04/2024 Negative Final 28wk labs: GLUCOSE, GESTATIONAL SCREEN (50G)-140 CUTOFF Date Value Ref Range Status 03/26/2024 73 <140 mg/dL Final HEMOGLOBIN Date Value Ref Range Status 03/26/2024 13.2 11.7 - 15.5 g/dL Final TREPONEMA PALLIDUM Date Value Ref Range Status 03/26/2024 Non-Reactive Non-Reactive Final Last Tdap: 04/23/24 Last Flu vaccine: 02/13/22 OB Labs: ABORH Date Value Ref Range Status 11/01/2023 O Rh Positive Final ANTIBODY SCREEN Date Value Ref Range Status 11/01/2023 Negative Negative Final TREPONEMA PALLIDUM Date Value Ref Range Status 03/26/2024 Non-Reactive Non-Reactive Final HBSAG Date Value Ref Range Status 11/01/2023 Nonreactive Nonreactive Final HEPATITIS C ANTIBODY Date Value Ref Range Status 11/01/2023 Non-Reactive Non-Reactive Final HIV-1/HIV-2 SCREEN Date Value Ref Range Status 11/01/2023 Non-Reactive Non-Reactive Final VARICELLA ZOSTER IGG ANTIBODY Date Value Ref Range Status 11/01/2023 418.1 >=165.0 INDEX Final INTERPRETATION Date Value Ref Range Status 11/01/2023 Positive Final Comment: Presence of detectable IgG antibodies. A positive result generally indicates exposure to the virus or previous vaccination, but is not an indication of active infection or stage of disease. HEMOGLOBIN Date Value Ref Range Status 11/01/2023 14.2 12.0 - 16.0 g/dL Final HEMOGLOBIN Date Value Ref Range Status 03/26/2024 13.2 11.7 - 15.5 g/dL Final PLATELET COUNT Date Value Ref Range Status 11/01/2023 335 140 - 440 thou/cu mm Final Allergies Allergen Reactions Honey Anaphylaxis Venom-Honey Bee Anaphylaxis Penicillins Rash PCN injection. Sweating OB History Para Term AB Living 3 2 2 0 0 2 SAB IAB Ectopic Multiple Live Births 0 0 0 0 2 # Outcome Date GA Lbr Silver/2nd Weight Sex Type Anes PTL Lv 3 Current 2 Term 12/16/21 39w0d 2.69 kg (5 lb 15 oz) F Vag N PIYUSH Name: [place] Apgar1: 7 Apgar5: 8 1 Term 04/30/18 39w5d 3.06 kg (6 lb 12 oz) F VAGINAL ERWIN EPIDURAL N PIYUSH Name: Minda Past Medical History: . Date ASCUS of cervix with negative high risk HPV 01/2021 ASCUS/HPV negative. Plan:Pap due 01/2024 Past Surgical History: . Laterality Date TONSILLECTOMY Bilateral 3 Problems (from 11/01/23 to present) No problems associated with this episode. Morenita Walton RN ....11/08/2023 1:32 PM COVID-19 affecting in second trimester 07/25/2021 Overview (07/25/2021): Diagnosed 16 weeks. Encounter for supervision of other normal , first trimester 05/30/2021 04/28/2021 Overview (12/01/2021): Component Latest Ref Rng & Units 11/24/2021 Vaginal/Rectal OB Strep B PCR Negative Estimated Date of Delivery: 12/14/21 Patient's last menstrual period was 03/09/2021. Last Tdap- 09/21/2021 Last Flu vaccine- 01/23/2017 Glucose (GTT) result- Component Latest Ref Rng & Units 09/21/2021 HEMOGLOBIN 12.0 - 16.0 g/dL 12.8 MCV 80 - 100 fL 90 GLUCOSE,GESTATIONAL 65 - 140 mg/dL 85 TREPONEMA PALLIDUM Negative Negative 20 week US: FINDINGS: Sonographic imaging demonstrates a single living intrauterine gestation. Fetus demonstrates a regular cardiac rate of 147 beats per minute. Fetus has a breech position. The placenta lies anteriorly without evidence of placenta previa. Amniotic fluid volume appears normal. Single deepest vertical pocket: 3.6 cm. The cervix is closed and measures 3.5 cm in length. The composite ultrasound gestational age is calculated at 20 weeks 1 day with an estimated sonographic due date of 12/26/2021. The estimated weight is 346 grams which lies at the 32nd %. The following biometric measurements were obtained: Biparietal diameter: 4.4 cm/19 weeks 3 days 9th% Head circumference: 17.3 cm/19 weeks 6 days 13th% Abdominal circumference: 15.5 cm/20 weeks 5 days 47th% Femur length: 3.2 cm/20 weeks 1 day 26th% The HC/AC ratio measures: 1.11 range (1.09-0.26) On anatomic survey, there is a normal appearance of the cerebral ventricles, cavum septi pellucidi, cisterna magna and cerebellum. The nose, lips, and facial profile appear normal. The cervical, thoracic and lumbar spine are well visualized and appear normal. There is a normal four-chamber heart view and the left and right ventricular outflow tracts appear normal. The diaphragm and stomach appear normal. The kidneys and bladder also appear normal. There is a normal three- vessel cord and cord insertion site. The four extremities appear normal. IMPRESSION: Normal OB ultrasound exam with concordance of clinical and sonographic dating. No intrinsic abnormalities noted on anatomic survey. Allergies Allergen Reactions Honey Anaphylaxis Venom-Honey Bee Anaphylaxis Penicillins Rash PCN injection. Sweating OB History Para Term AB Living 2 1 1 0 0 1 SAB IAB Ectopic Multiple Live Births 0 0 0 0 1 # Outcome Date GA Lbr Silver/2nd Weight Sex Delivery Anes PTL Lv 2 Current 1 Term 04/30/18 39w5d 3.06 kg (6 lb 12 oz) F VAGINAL ERWIN EPIDURAL N PIYUSH Name: [place] Create lab flowsheet for OB labs- Component Latest Ref Rng & Units 05/02/2021 05/02/2021 05/02/2021 2:45 PM 2:45 PM 2:45 PM [...] ANTIBODY Non-Reactive Past Medical History: . Date ASCUS of cervix with negative high risk HPV 01/2021 ASCUS/HPV negative. Plan:Pap due 01/2024 No past surgical history on file. No data on file. Preganacy 2 Problems (from 04/22/21 to present) No problems associated with this episode. Karina Godinez RN.....04/28/2021 1:38 PM Cervical cancer screening 01/17/2021 Overview (08/22/2024): 01/2021 ASCUS/HPV negative 07/2024 NIL/HPV negative Plan: HPV-based testing due in 5 years BRONCHITIS - ACUTE 03/31/2005 CONJUNCTIVITIS 03/31/2005 Resolved Problems Problem Noted Date Diagnosed Date Resolved Date Supervision of normal first , antepartum 02/11/2018 04/28/2021 Overview (04/22/2018): Component Latest Ref Rng & Units 04/08/2018 Culture No Group B Streptococcus isolated. Initial OB labs: CG Chlam neg O+ Neg antibody Hep B non reactive Syphilis neg Rubella Immune VZV immune Quad screen neg Pap NIL 20 week ultrasound: Anterior placenta <25% growth Normal anatomy, unable to visualize spine due to position Estimated Date of Delivery: 05/02/18 Patient's last menstrual period was 07/26/2017. Last Tdap- 02/11/2018 Last Flu vaccine- declined Glucose (GTT) result- not on file Allergies Allergen Reactions Honey Anaphylaxis Venom-Honey Bee Anaphylaxis Penicillins Rash PCN injection. Sweating Obstetric History T0 L0 SAB0 TAB0 Ectopic0 Multiple0 Live Births0 # Outcome Date GA Lbr Silver/2nd Weight Sex Delivery Anes PTL Lv 1 Current Create lab flowsheet for OB labs- see above No past medical history on file. No past surgical history on file. No data on file. 1st Pregnacy Problems (from 02/11/18 to present) Problem Noted Resolved Supervision of normal first , antepartum 02/11/2018 by Eri Johnson MD No Overview Signed 02/11/2018 1:08 PM by Eri Johnson MD Initial OB labs: CG Chlam neg O+ Neg antibody Hep B non reactive Syphilis neg Rubella Immune VZV immune Quad screen neg Pap NIL 20 week ultrasound: Anterior placenta <25% growth Normal anatomy, unable to visualize spine due to position MARILUZ [place].....02/12/2018 7:37 AM Encounters Date Type Department Care Team Description 09/23/2024 Nurse Triage [facility] [address] [place] [address] Eri Johnson MD breast pain and breast feeding 08/06/2024 10:55 AM CDT Office Visit [facility] [address] [place] [address] Eri Johnson MD Care (6 weeks /Discuss Control/Still having cramping mainly with breast feeding) 08/06/2024 Travel 08/01/2024 Travel 06/24/2024 Orders Only [facility] Scanner 1 scan: (1-Ord) [facility], 06/24/2024 from Last 3 Months Immunizations Immunization Administration Dates Next Due DTaP 08/21/2001, 8,02/18/1997, 7,1996 HIB PRP-OMP (PedvaxHIB) 03/08/1998,02/18,1996, 7 Hepatitis B (Peds) 02/18/1997,1996, 997 Inactivated Polio Vaccine 08/21/2001,11/1997,1996, 7 Influenza, IIV3 (Age >=3 years) 01/24/2006,03/06 Influenza, IIV4 02/13/2022,01/23/2017,12/08/2008 MMR 08/21/2001,11/25/1997 Meningococcal Vaccine (Menactra) 10/02/2008 Tdap 04/23/2024, 2,02/11/2018, 9 Tuberculin Skin Test, Unspecified 11/15/2016, Varicella Vaccine 10/02/2008,03/08/1998 Family History Medical History Relation Name Comments Congenital heart disease Half-Brother Genetic Other Family history of:cervucsl ca- mothetr~~Breast Cancer: No~~Ovarian Cancer: No~~Colon CA: No~~Prostate/Testicular CA: No~~Osteoporosis: No~~Early CAD: No~~DM: No~~Thyroid Dz: No Relation Name Status Comments Father Half-Brother Other Social History Tobacco Use Types Packs/Day Years Used Date Smoking Tobacco: Never Smokeless Tobacco: Never Tobacco Cessation:Counseling Given: No Alcohol Use Standard Drinks/Week Comments No 0 (1 standard drink = 0.6 oz pur e alcohol) PHQ-2 Answer Date Recorded PHQ-2 TOTAL SCORE 0 08/06/2024 Social Connections Answer Date Recorded Do you often feel lonely or isolated from those around you? 0 04/23/2024 Financial Resource Strain Answer Date R ecorded Difficulty of Paying Living Expenses 3 04/23/2024 Difficulty of Paying Living Expenses Not on file 04/23/2024 Food Insecurity Answer Date Recorded Do you worry your food will run out before you are able to buy more? 1 04/23/2024 Transportation Needs Answer Date Record ed Does lack of transportation keep you from medica l appointments? 1 04/23/2024 Does lack of transportation keep you from work, meetings or getting things that you need? 1 04/23/2024 Housing Stability Answer Date Recorded What is your housing situation today? 1 04/23/2024 Utilities Answer Date Recorded Do you have trouble paying f or utilities (for example, heat, electricity, water, phone)? 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 Gender Identity Not on file Sexual Orientation Not on file Obstetrics History Para Term AB IAB SAB Ectopic Multiple Livin g Live Births 3 3 3 3 3 Date Outcome GA Total Labor Labor/2nd/3rd Weight Sex Type Anes PTL Piyush A1 A5 Name Clin 2018 Term 39w 5d 10h 00m 3.06 kg (6 lb 12 oz) F VAGINA L ERWIN Epidur al N Livin g Paisl ey Tappe r Complications:None Delivery Location:[facility] 2021 Term 39w 0d 2.69 kg (5 lb 15 oz) F Vag N Livin g 7 8 Beatris on Tappe r, Jonathan in Paul bourgeois MD Complications:None Delivery Location:[facility] 2024 Term 39w 3d M VAGINA L ERWIN Epidur al Livin g 7 9 Tappe r Last Filed Vital Signs Vital Sign Reading Time Taken Comments Blood Pressure 122/85 08/06/2024 10:17 AM CDT Pulse 71 08/06/2024 10:17 AM CDT Temperature 36.4 C (97.6 F) 01/17/2024 10:33 AM CDT Respiratory Rate - - Oxygen Saturation 99% 08/06/2024 10:17 AM CDT Inhaled Oxygen Concentration - - Weight 66 kg (145 lb 9.6 oz) 08/06/2024 10:17 AM CDT Height 162 cm (5' 3.78) 08/06/2024 10:17 AM CDT Body Mass Index 25.16 08/06/2024 10:17 AM CDT Plan of Treatment Health Maintenance Due Date Last Done Comments Pneumococcal series for age 6-49 (1 of 2 - PCV) 07/28/2015 COVID-19 vaccine series (3 - 2023- season) 2023 11/11/2020, 10/21/2020 Influenza Vaccine (#1) 2024 , 01/23/2017, 12/08/2008, Additional history exists BMI (ht and wt on same day) for age 18+ 08/06/2025 08/06/2024, 01/17/2024, 12/31/2023, Additional history exists Depression screening for age 12+ 08/06/2025 08/06/2024, 11/12/2023, 11/08/2023, Additional history exists Pap test for age 21-65 08/06/2029 , 08/06/2024, 01/17/2021, Additional history exists Tetanus booster 04/23/2034 04/23/2024, 07/0 08/2021, 02/11/2018, Additional history exists Hepatitis B series for 19+ Completed 02/18, 1996, 1996 HIV for age 15-65 Completed 11/01/2023, 05/02/2021 Hepatitis C screening for ag e 18-79 Completed 11/01/2023 Procedures Procedure Name Priority Date/Time Associated Diagnosis Comments ORACLE ANALYST THIN PREP PAP SCREEN IMAGED Routine 08/06/2024 1:06 PM CDT Cervical cancer screening HPV HIGH RISK Routine 08/06/2024 1:06 PM CDT Cervical cancer screening SCAN-LABORATORY REPORT 06/24/2024 12:00 AM CDT ANTI HIV 1/2 Routine 11/01/2023 9:17 AM CDT Encounter for confirmation of test result with physical examination ANTI HCV Routine 11/01/2023 9:17 AM CDT Encounter for confirmation of test result with physical examination from Last 3 Months or Most Recently Relevant to Health Maintenance Results * ORACLE ANALYST THIN PREP PAP SCREEN IMAGED (08/06/2024 1:06 PM CDT) Case Report Gynecologic Cytology Report Case: [id number] Authorizing Provider: Eri Johnson MD Collected: 08/06/2024 1306 Ordering Location: [facility] Received: 08/06/2024 1306 Clinic First Screen: Debra Martínez Rescreen: Lupe Warren Specimen: ORACLE ANALYST ThinPrep Vial Screening, Cervical 08/17/2024 3:29 PM CDT [facility] INTERPRETATION/ RESULT NEGATIVE FOR INTRAEPITHELIAL LESION OR MALIGNANCY (NIL) (none) 08/17/2024 3:29 PM CDT [facility] at 1529 CDT SPECIMEN ADEQUACY Satisfactory for evaluation No endocervical component seen 08/17/2024 3:29 PM CDT [facility] HPV REQUEST HPV and PAP 08/17/2024 3:29 PM CDT [facility] Date of LMP 06/23/2024 delivery 2024 3:29 PM CDT [facility] Last Pap Date 01/17/21 08/17/2024 3:29 PM CDT [facility] ENTRAL [facility]AT[facility] Last Pap Result ASCUS 3:29 PM CDT [facility] Abnormal Pap or [place] Bx in last 5 years No 08/17/2024 3:29 PM CDT [facility] Menstrual Status 08/17/2024 3:29 PM CDT [facility] [place] Bx Done Today No 08/17/2024 3:29 PM CDT [facility] Additional Information None given 08/17/2024 3:29 PM CDT [facility] ENTRAL LABORATORY Comment: Cytology is screened at [facility] Central Laboratory - [address] [address] and [facility] Laboratory - [address] [place] [address] [place] [address] and [facility] Laboratory - [address] [place] [address] [facility] Laboratory - [address], [place] [address] Automated Review Successful 08/17/2024 3:29 PM CDT [facility] Comment:Specimen processed s uccessfully by automated inletter device, ThinPrep Imaging System, [employer] ANCILLARY TESTING ORACLE ANALYST HPV Ordered, Please see separate report 08/17/2024 3:29 PM CDT [facility] Note The pap test is a screening technique, not a diagnostic procedure. It is used primarily to screen for squamous cancers and precursor lesions. Published studies have shown that it is subject to both false negative and false positive results. The pap test should not be used as the sole means to diagnose or exclude pre-malignant and malignant lesions. 08/17/2024 3:29 PM CDT [facility] Other (Cervical) Non-Blood / Unknown 08/06/2024 1:06 PM CDT 08/06/2024 1:06 PM CDT Eri Johnson MD PATHOLOGY/CYTOLOGY Marline rivera Result [facility] [address] [place] [address], * HPV HIGH RISK (08/06/2024 1:06 PM CDT) TYPE 16 Negative Negative 08/09/2024 7:05 AM CDT [facility] TRA [facility]AT[facility] TYPE 18 Negative Negative 08/09/2024 7:05 AM CDT [facility] OTHER HIGH RISK TYPES Negative Negative 08/09/2024 7:05 AM CDT [facility] Other (Cervical) Non-Blood / Unknown 08/06/2024 1:06 PM CDT 08/07/2024 12:[address] [facility] - 08/09/2024 7:05 AM CDT HPV types 16, 18, 31, 33, 35, 39, 45, 51, 52, 56, 58, 59, 66 and 68 DNA were undetectable or below the pre-set threshold. Methodology: Perla Sumaya 4800 HPV Test us Eri Johnson MD MICROBIOLOGY Final R esult Performing Organization Address [facility] Co de Phone Number [facility] [address] [address], * SCAN-LABORATORY REPORT (06/24/2024 12:00 AM CDT) Scanner OTHER Final Result * ANTI HCV (11/01/2023 9:17 AM CDT) Pathologist [facility] HEPATITIS C ANTIBODY Non-Reacti ve Non-React stone 11/01/2023 6:05 PM CDT [facility] Comment:Please note, per www .CDC.gov: If a patient is known to be at high risk of HCV infection, or is symptomatic, and the physician's suspicion of HCV infection is high, HCV RNA testing is often employed and is of diagnostic value, even after an initial negative anti-HCV test result. Blood BLOOD SPECIMEN / Unknown Venipuncture / Unknown 11/01/2023 9:17 AM CDT 11/01/2023 9:18 AM CDT us Mady Galvan MD SEND OUTS Fi nal Result Performing Organization Address City/[facility]/ZIP Co de Phone Number [facility] [address] [address], [place] * ANTI HIV 1/2 (11/01/2023 9:17 AM CDT) Pathologist [facility] HIV-1/HIV-2 SCREEN Non-Reacti ve Non-Reacti ve 11/01/2023 4:49 PM CDT [facility] TRAL LABORATORY Comment:HIV-1 p24 and HIV-1/ HIV-2 Ab Not Detected. Blood BLOOD SPECIMEN / Unknown Venipuncture / Unknown 11/01/2023 9:17 AM CDT 11/01/2023 9:18 AM CDT Mady Galvan MD SEND OUTS Fi nal Result [facility]AL LAB[facility]ORY [address] [place] [address], [place] from Last 3 Months or Most Recently Relevant to Health Maintenance Insurance [employer] [facility] [employer] [facility] Care Teams User Experience Manager Relationship Specialty Start Date End Date Alex, Eri Margaret, MD [address] [place] [address] PCP - General Family Practice 12/11/17
[2024-09-23] MEDS: DICLOXACILLIN 250 MG CAPSULE 500 MG PO (12:35)
== END 2024-09-23 12:36 | disposition home or self-care (01) ==
PROVIDERS: Emergency Provider Emergency Medicine Emergency Medical Services; PCP Family Medicine
DX: N61.0 Mastitis without abscess (principal)
CPT/HCPCS: 99283; 99284

== ENCOUNTER 2025-02-04 04:53 | Emergency (ER) | payer BC, SELFPAY ==
--- OUTSIDE RECORDS SUMMARY | 2025-02-04 04:57 | XMS_ITS | Clinical Summary ---
Author Organization [employer] [facility] Address [address] [place] [id number] Care Team Providers Care Reservoir Engineering Advisor Name Role Phone Alex, Eri Robles MD Primary Care Provider Allergies Active Allergy Reactions Criticality Noted Date Comments Honey Anaphylaxis High 09/29/2013 Penicillins Rash 12/21/2009 PCN injection. Sweating Venom-Honey Bee Anaphylaxis High 11/13/2010 Medications norethindrone (Contraceptive) 0.35 mg tabletIndications :Encounter for contraceptive management, unspecified type Take 1 Tablet (0.35 mg) by mouth once daily. 84 Tablet 3 5 025 Discontinu ed(*Med complete/R egimen complete/L evel of care change) fluconazole (DIFLUCAN) 150 mg tabletIndications :Yeast vaginitis Take 1 Tablet (150 mg) by mouth one time for 1 dose. May repeat dose in 1 week if symptoms persist. 2 Tablet 5 025 Active Problems Problem Noted Date Diagnosed Date [...] (5 lb 15 oz) F Vag N PYIUSH Name: [place] Apgar1: 7 Apgar5: 8 1 Term 04/30/18 39w5d 3.06 kg (6 lb 12 oz) F VAGINAL ERWIN EPIDURAL N PIYUSH Name: [place] Past Medical History: . Date ASCUS of [...] F VAGINAL ERWIN EPIDURAL N PIYUSH Name: [place] Create lab flowsheet for OB labs- Component [...] Encounters Date Type Department Care Team Description 02/03/2025 8:20 AM FIBER OPTICS TECHNICIAN Office Visit [facility] [address] [place] [address] Shelia Duvall, ARLEEN Vaginal Problem (Itchy, burning x 7 days) 02/02/2025 7:25 AM FIBER OPTICS TECHNICIAN E-Visit [facility] [address] [place] [address] Eri Johnson MD eVisit for Vaginal Discharge / Irritation 02/02/2025 Travel from Last 3 Months Immunizations Immunization Administration [...] on file Legal Sex Female 7:09 AM FIBER OPTICS TECHNICIAN Gender Identity Not on file Sexual Orientation [...] g Paisl ey Tappe r Complications:None Delivery Location:[facility] 2021 Term 39w 0d 2.69 kg (5 lb 15 oz) F Vag N Livin g 7 8 [place] on Bharti rJonathan MD Complications:None Delivery Location:[facility] 2024 Term 39w 3d M VAGINA L ERWIN Epidur al Livin g 7 9 [place] r Last Filed Vital Signs Vital Sign Reading Time Taken Comments Blood Pressure 116/86 02/03/2025 8:27 AM FIBER OPTICS TECHNICIAN Pulse 80 02/03/2025 8:27 AM FIBER OPTICS TECHNICIAN Temperature 36.4 C (97.6 F) 01/17/2024 10:33 AM CDT Respiratory Rate - - Oxygen Saturation 98% 02/03/2025 8:27 AM FIBER OPTICS TECHNICIAN Inhaled Oxygen Concentration - - Weight 65.8 kg (145 lb) 02/03/2025 8:27 AM FIBER OPTICS TECHNICIAN Height 162 cm (5' 3.78) 08/06/2024 10:17 AM CDT Body Mass Index 25.06 08/06/2024 10:17 AM CDT Plan of Treatment Upcoming Encounters Date Type Department Care Team (Late st Contact Info) Description 02/04/2025 9:50 AM FIBER OPTICS TECHNICIAN Office Visit [facility] [address] [place] [address] Mady Galvan MD [address] [place] [address] Health Maintenance Due Date Last Done Comments Pneumococcal series for age 6-49 (1 of 2 - PCV) 07/28/2015 HPV series for age 9-45 (1 - 3-dose SCDM series) 07/28/2023 Influenza Vaccine (#1) 2024 2, 01/23/2017, 12/08/2008, Additional history exists BMI (ht and wt on same day) for age 18+ 08/06/2025 08/06/2024, 01/17/2024, 12/31/2023, Additional history exists Depression screening for age 12+ 08/06/2025 08/06/2024, 11/12/2023, 11/08/2023, Additional history exists Pap test for age 21-65 08/06/2029 5, 08/06/2024, 01/17/2021, Additional history exists Tetanus booster 04/23/2034 04/23/2024, 07/0 08/2021, 02/11/2018, Additional history exists RSV vaccine for adults or (1 - 1-dose 75+ series) 07/28/2071 Hepatitis B series for 19+ Completed 02/18, 1996, 1996 HIV for age 15-65 Completed 11/01/2023, 05/02/2021 Hepatitis C screening for ag e 18-79 Completed 11/01/2023 Procedures Procedure Name Priority Date/Time Associated Diagnosis Comments TRICHOMONAS, RAÚL, AND BACTERIAL VAGINOSIS BY RAKESH Routine 02/03/2025 10:07 AM FIBER OPTICS TECHNICIAN Vaginal discharge HPV HIGH RISK Routine 08/06/2024 1:06 PM CDT Cervical cancer screening ANTI HIV 1/2 Routine 11/01/2023 9:17 AM CDT Encounter for confirmation of test result with physical examination ANTI HCV Routine 11/01/2023 9:17 AM CDT Encounter for confirmation of test result with physical examination from Last 3 Months or Most Recently Relevant to Health Maintenance Results * TRICHOMONAS, RAÚL, AND BACTERIAL VAGINOSIS BY RAKESH (02/03/2025 10:07 AM FIBER OPTICS TECHNICIAN) RAÚL SPECIES Negative Negative, NOT Detected 02/03/2025 7:15 PM FIBER OPTICS TECHNICIAN [facility] RAÚL GLABRATA Negative Negative 02/03/2025 7:15 PM FIBER OPTICS TECHNICIAN [facility] TRICHOMONAS VVA Negative Negative, NOT Detected 02/03/2025 7:15 PM FIBER OPTICS TECHNICIAN [facility] BACTERIAL VAGINOSIS Negative Negative, NOT Detected 02/03/2025 7:15 PM FIBER OPTICS TECHNICIAN [facility] Other VAGINAL SWAB / Unknown Non-Blood / Unknown 02/03/2025 10:07 AM FIBER OPTICS TECHNICIAN 02/03/2025 10:08 AM FIBER OPTICS TECHNICIAN Shelia Duvall NP MICROBIOLOGY Final Res ult [facility] [address] [place] [address], * HPV HIGH RISK (08/06/2024 1:06 PM CDT) TYPE 16 Negative Negative 08/09/2024 7:05 AM CDT [facility] TYPE 18 Negative Negative 08/09/2024 7:05 AM CDT [facility] OTHER HIGH RISK TYPES Negative Negative 08/09/2024 7:05 AM CDT [facility] Other (Cervical) Non-Blood / Unknown 08/06/2024 1:06 PM CDT 08/07/2024 12:27 PM CDT Narrative [facility] - 08/09/2024 7:05 AM CDT HPV types 16, 18, 31, 33, 35, 39, 45, 51, 52, 56, 58, 59, 66 and 68 DNA were undetectable or below the pre-set threshold. Methodology: Perla Sumaya 4800 HPV Test Eri Johnson MD MICROBIOLOGY Final R esult Performing Organization Address [facility] Co de Phone Number [facility] [address] [place] [phone], [place] * ANTI HCV (11/01/2023 9:17 AM CDT) Pathologist [facility] HEPATITIS C ANTIBODY Non-Reacti ve Non-React stone 11/01/2023 6:05 PM CDT [facility] Comment:Please note, per www .CDC.gov: [...] OUTS Fi nal Result Performing Organization Address City/[facility]/ZIP Co de Phone Number [facility] [address] [place] [phone], [place] * ANTI HIV 1/2 (11/01/2023 9:17 AM CDT) Pathologist [facility] HIV-1/HIV-2 SCREEN Non-Reacti ve Non-Reacti ve 11/01/2023 4:49 PM CDT [facility] Comment:HIV-1 p24 and HIV-1/ HIV-2 Ab Not Detected. Blood BLOOD SPECIMEN / Unknown Venipuncture / Unknown 11/01/2023 9:17 AM CDT 11/01/2023 9:18 AM CDT us Mady Galvan MD SEND OUTS Fi nal Result [facility] [address] [place] [address], [place] from Last 3 Months or Most Recently Relevant to Health Maintenance Insurance [employer] [facility] Rest Devices [facility] Care Teams Reservoir Engineering Advisor Relationship Specialty Start Date End Date Eri Johnson MD [address] [place] [address] PCP - General Family Practice 02/03/25
--- OUTSIDE RECORDS SUMMARY | 2025-02-04 04:57 | XMS_ITS | Clinical Summary ---
Author Organization [facility] Address [address], [place] [address] Care Team Providers Care Glassware Engraver Name Role Phone Unavailable Primary Care Provider Unavailabl e Source Comments You are receiving this document as you are listed as the primary care provider,follow-up provider, or the patient has been referred to you for consultation.This is in compliance with the Medicare and[facility] Hospitalca[facility] EHR Incentive Program,which states Providers who transition their patient to another setting of careor provider of care or refers their patient to another provider of care shouldprovide summary care record for each transition of care or referral. [facility] Allergies Active Allergy Reactions Criticality Noted Date [...] on file Legal Sex Female 2:40 PM EXTERNAL GRINDER TOOL Gender Identity Not on file Sexual Orientation Not on file Last Filed Vital Signs Vital Sign Reading Time Taken Comments Blood Pressure 127/78 03/27/2017 10:52 AM EXTERNAL GRINDER TOOL Pulse 76 03/27/2017 10:52 AM EXTERNAL GRINDER TOOL Temperature - - Respiratory Rate - - Oxygen Saturation - - Inhaled Oxygen Concentration - - Weight 60.8 kg (134 lb) 03/27/2017 10:52 AM EXTERNAL GRINDER TOOL Height 162.1 cm (5' 3.8) 03/27/2017 10:52 AM CS T Body Mass Index 23.15 03/27/2017 10:52 AM EXTERNAL GRINDER TOOL Plan of Treatment Health Maintenance Due Date Last Done Comments Cervical Cancer Screening Due 1996 Hep C Screening (Preventive Services) 1996 HIV Screening (Preventive Services) 2012 Adult Preventive Visit 2014 DTaP/Tdap/Td Vaccine (1 - Tdap) 07/28/2015 HepB Vaccine (1) 07/28/2015 HPV Vaccine (1 - 3-dose SCDM series) 07/28/2023 COVID-19 Vaccine (1 - 2024-2 6 season) 2024 Influenza Vaccine (#1) 2024 01/17/2017 Zoster/Shingles Vaccine (1 of 2) 2046 HepA Vaccine Aged Out No longer eligi [...] patient's age to complete this topic Insurance [facility]
[2025-02-04 05:00] VITALS: BP 138/86; PULSE 75; RESP 16; TEMP 36.8; O2SAT 98; BMI 26.5
[2025-02-04 05:05] LABS: Appearance Urine Cloudy (Clear)
--- NOTE | 2025-02-04 05:11 | ED.FEMALEGU ---
HPI - Female Genitourinary General Time Seen by Provider: 05:11 Date Seen: 02/04/25 Chief complaint: Urogenital Problems, Female Stated complaint: possible UTI Time Seen by Provider: 02/04/25 05:11 Source: patient Mode of arrival: ambulatory History of Present Illness HPI Narrative: Arabella is a 29-year-old female who presents the emergency department for evaluation of lower urinary symptoms. Patient reports that she recently has had yeast infections signs and symptoms for the past 1 week. Patient states she initially started taking a 7 day course of Monistat however had no improvement of symptoms on day 4 so at that time she saw her doctor - Dr. Johnson via videovisit and stopped the monistat and took 1 tablet of diflucan. Patient reports still had ongoing symptoms as well as irritation, swelling, itching, as well as dysuria, and clear discharge which started yesterday. Patient states she went to a clinic in [place] were she declined STI testing and states they did not do anything else (no pelvic, no urine test). Patient reports significant discomfort, unable to sleep due to symptoms. Patient reports she is in a monogamous relationship with her and low concern for sexually transmitted infection. Patient is not want to be tested for gonorrhea chlamydia at this time. Denies any fever, chills, nausea, vomiting, abdominal pain. Patient states she recently got her menstrual cycle for the 1st time last week. Patient is currently breastfed. Patient reports she last had sexual intercourse 7-10 days ago (prior to getting her menstrual cycle) and reports no pain with intercourse. Related Data Previous Rx's ?Medication ?Instructions ?Recorded dicloxacillin 500 mg capsule 500 mg PO Q6H #30 caps 09/23/24 Allergies Allergy/AdvReac Type Severity Reaction Status Date / Time bee venom protein (honey bee) Allergy Severe Anaphylaxis Verified 02/04/25 05:05 Penicillins Allergy Severe Anaphylaxis Verified 02/04/25 05:05 honey Allergy Swelling Verified 02/04/25 05:05 of Lip/Tongue/Throat Review of Systems Narrative: Past medical history, past surgical history, medications, allergies, family history, and social history were reviewed with the patient. No additional pertinent items. A medically appropriate review of systems was performed with pertinent positives and negatives noted in HPI, all other systems negative. [facility] Medical History (Updated 02/04/25 @ 06:26 by Sharon Walton MD) Term ?Z34.90 - Encounter for supervision of normal , unspecified, unspecified trimester (ICD-10) Surgical History (Updated 06/23/24 @ 12:07 by Eri Johnson MD) History of tonsillectomy ?Z90.89 - Acquired absence of other organs (ICD-10) Social History What is your current living situation?: I presently have a place to live Problems where you live: no known problems In the past 12 months, utilities in danger of being shut off: no In past 12 months, lack of transportation kept you from medical appts, meetings, work, or getting things needed for daily living: no In the past 12 mos, have been you worried that your food would run out before you had money to buy more?: never true In the past 12 mos, the food you bought just didn't last and you didn't have money to buy more?: never true Smoking Status: Never smoker Do you use any of these nicotine containing products: None How often do you have a drink containing alcohol: never How often do you have six or more drinks on one occasion: Never AUDIT-C Alcohol total score: 0 Non-prescribed substance use: denies use How often does anyone, including family, friends and others, physically hurt you: never How often does anyone, including family, friends and others, insult or talk down to you: never How often does anyone, including family, friends and others, threaten you with harm: never How often does anyone, including family, friends and others, scream or curse at you: never service: No Exam Narrative: Exam Narrative: General: Afebrile, in distress secondary to pain HEENT: Normocephalic, atraumatic, conjunctiva normal. MMM Neck: non-tender, supple Cardio: regular rate. regular rhythm Resp: Normal work of breathing, no respiratory distress, lungs clear bilaterally, no wheezing, rhonchi, rales Chest/Back: no visual signs of trauma, no midline tenderness, no CVA tenderness : external genitalia with erythema, mild swelling, no ulceration, no skin breakdown, no area of fluctuance, inner canal with small amount of creamy discharge, no CMT, no adnexal tenderness Abdomen: soft, non distension, no tenderness, no peritoneal signs Neuro: alert and fully oriented. CN II-XII grossly intact. Grossly normal strength and sensation in all extremities. MSK: no deformities. Normal range of motion Integumentary/Skin: no rash visualized, normal color Psych: normal affect, normal behavior Const: Vital Signs, click to edit/add: Vital Signs - 24 hr 02/04/25 05:00 Temperature 98.3 F Pulse Rate [Right Pulse Oximeter] 75 Respiratory Rate 16 Blood Pressure [Ri ght Upper Arm] 138/86 Pulse Oximetry 98 Oxygen Delivery Me thod Room Air Course Vital Signs Vital signs: Initial Vital Signs Temperature 98.3 F 02/04/25 05:00 Temperature Source Temporal Artery Scan 02/04/25 05:00 Pulse Rate 75 02/04/25 05:00 Pulse Rhythm Regular 02/04/25 05:00 Pulse Strength 3+ Normal 02/04/25 05:00 Respiratory Rate 16 02/04/25 05:00 Blood Pressure 138/86 02/04/25 05:00 Blood Pressure Mean 103 02/04/25 05:00 Blood Pressure Position Supine 02/04/25 05:00 Pulse Oximetry 98 02/04/25 05:00 Oxygen Delivery Method Room Air 02/04/25 05:00 Vital Signs Temperature 98.3 F 02/04/25 05:00 Pulse Rate 75 02/04/25 05:00 Respiratory Rate 16 02/04/25 05:00 Blood Pressure 138/86 02/04/25 05:00 Pulse Oximetry 98 02/04/25 05:00 Oxygen Delivery Method Room Air 02/04/25 05:00 Temperature 98.3 F 02/04/25 05:00 Pulse Rate 75 02/04/25 05:00 Respiratory Rate 16 02/04/25 05:00 Blood Pressure 138/86 02/04/25 05:00 Pulse Oximetry 98 02/04/25 05:00 Oxygen Delivery Method Room Air 02/04/25 05:00 MDM - Female Genitourinary MDM Narrative Medical decision making narrative: Arabella is a 29-year-old female who presents the emergency department for evaluation of lower urinary symptoms. Upon arrival patient is nontoxic appearing, afebrile, in distress secondary to pain. Differential diagnosis includes but is not limited to cystitis versus bacterial vaginitis versus yeast infection versus Trichomonas versus gonorrhea/chlamydia versus vulvitis versus allergic reaction among others Wet prep negative for Trichomonas, yeast, bacterial vaginosis. Patient declined GC/chlamydia testing. I reviewed urinalysis which demonstrates cloudy appearance, + protein, ketones, blood, leukocyte esterase, 5-10 red blood cells, 5-10 white blood cells, moderate squamous cells, moderate bacteria. I discussed results as well as possible contamination. Discussed with patient treated with antibiotics versus holding off until urine culture results. At this time patient would prefer to start treatment due to her symptoms. Patient will be discharged with a prescription for Keflex twice daily for 5 days, will follow-up urine culture. Also discussed supportive measures for patients vulvitis with cooling pads, Tylenol, ibuprofen, Vaseline, and consider topical lidocaine and or hydrocortisone cream. Patient is agreeable with discharge with close outpatient follow-up with her primary care provider/OBGYN. Return precautions discussed. Patient understands and agrees the plan. Medical Records Attestation: I reviewed the patient's medical records. Lab Data Attestation: I reviewed the patient's lab results. Labs: Lab Results 02/04/25 02/04/25 Range/Units 04:57 05:20 Urine Color Yellow (Yellow) Urine Appearance Cloudy A (Clear) Urine pH 6.5 (5.0-8.5) Ur Specific [place] >= 1.030 (1.000-1.030) Urine Protein 2+ A (Negative) Urine Glucose (UA) Negative (Negative) Urine Ketones 3+ A (Negative) Urine Blood 2+ A (Negative) Urine Nitrite Negative (Negative) Urine Bilirubin Negative (Negative) Urine Urobilinogen 0.2 (0.2-1.0) Ur Leukocyte Esterase 1+ A (Negative) Urine RBC 5-10 A (0-2) Urine WBC 5-10 A (0-5) Ur Squamous Epith Cells Moderate A (None-Few) Amorphous Sediment Few A (None) Urine Bacteria Moderate A (None) Urine Mucus Few A (None) Vaginal Trichomonas No Trichomonas Seen (None Seen) Vaginal Yeast No Yeast Seen (None Seen) Vaginal Clue Cells No Clue Cells Seen (None Seen) Discharge Plan Discharge Clinical Impression: Vaginal pain, Acute vulvitis Patient Disposition: Home, Self-Care Condition: Stable Additional Instructions: Please follow-up your primary care provider or skidder runner in the next 2-3 days for further evaluation and follow-up. Please call to schedule an appointment. Please take Tylenol 1000 mg and ibuprofen 600 mg every 6 hours as needed for pain, swelling. Please take antibiotics twice daily for the next 5 days. Please apply ice packs/cool pads to affected area. You may try applying a thin layer of petroleum jelly (Vaseline) to help soothe irritation and act as a protective barrier 4-6 times daily You can also consider applying a thin layer of lidocaine jelly (numbing medicine), or hydrocortisone cream 1% twice daily. Please only apply to outer surface/layer of vagina/vulva. Please return to the emergency department if any worsening symptoms. It was a pleasure taking care of you today. We hope you feel better soon. Prescriptions: No Action dicloxacillin 500 mg capsule 500 mg PO Q6H Qty: 30 0RF Follow Up/Referrals: Eri Johnson MD [Primary Care Provider, Family Practice] Stand Alone Forms: Safe Communications Info Instructions
[2025-02-04 05:41] LABS: Trichomonas No Trichomonas Seen (None Seen)
[2025-02-04] MEDS: IBUPROFEN 200 MG TABLET 600 MG PO (06:36)
== END 2025-02-04 06:42 | disposition home or self-care (01) ==
PROVIDERS: Emergency Provider Emergency Medicine; PCP Family Medicine
DX: R10.20 Pelvic and perineal pain unspecified side (principal); N76.0 Acute vaginitis; R30.0 Dysuria
CPT/HCPCS: 81001; 87086; 87186; 87210; 99283; 99284; A9270